=== PATIENT | female | born 1955 | race Caucasian/White ===

== ENCOUNTER → 2016-12-06 | Day surgery (SDC) | payer BC ==
[2016-11-03 07:33] VITALS: BMI 32.0
[~2016-12-06] VITALS: Ht 160 cm; Wt 84.1 kg
[~2016-12-06] MED LIST: CHOL1000 PO; CYM/30 PO; LIDOCAINE HCL 2% 2 ML VIAL (20MG/ML) ONE; LISI40TA PO; MELO15TA4 PO; MULTTAB58 PO; NXM/40 PO; ONDANSETRON INJ 2 MG/ML 2 ML VIAL ONE; PROPOFOL IV EMULSION 10 MG/ML 20 ML VIAL IV ONE; PSEU30TA20 PO; RANI300T2 PO; SODIUM CHLORIDE 0.9% 500ML 500 ML IV ONE; ZCR40 PO
[2016-12-06 14:52] VITALS: Ht 160 cm; Wt 84.1 kg
--- NOTE | 2016-12-06 15:23 | Endo History and Physical ---
History & Physical Date of Service: Dec 06, 2016. Chief Complaint: Hx reflux Referring Physician: Dr. Romulo Craft History of Present Illness 61 yo CF who presents for EGD secondary to GERD Past Surgical History Hx Cardiac Surgery: No Hx Internal Defibrillator: No Hx Pacemaker: No Hx Abdominal Surgery: Yes (RUMA BSO) Hx of Implantable Prosthesis: No Hx Post-Op Nausea and Vomiting: No Hx Cancer Surgery: No Hx Thoracic Surgery: No Hx Orthopedic: No Hx Urinary Tract Surgery: No Family History None Social History Smoking Status: Never Smoker Hx Substance Use: No Hx Alcohol Use: No Allergies Coded Allergies: Cephalosporins (Verified Allergy, Intermediate, BLISTERS, 10/29/16) Aspirin (Verified Allergy, Mild, RASH, 10/29/16) Cephalexin (Verified Allergy, Unknown, Blisters, 10/29/16) Reported by PT. Current Medications Reported Home Medications Medications Dose Route/Sig Max Daily Dose Days Date Category Sudafed (Pseudoephedrine HCl) 30 Mg Tab 30 Mg PO DAILY PRN 10/25/16 Reported Vitamin D3 (Cholecalciferol) 1,000 Unit Tab 1 Tab PO QAM 10/25/16 Reported Cymbalta (Duloxetine HCl) 30 Mg Cap 1 Cap PO HS 10/25/16 Reported Zantac (Ranitidine HCl) 300 Mg Tab 300 Mg PO HS 10/25/16 Reported Zestril (Lisinopril) 40 Mg Tab 40 Mg PO QAM 10/25/16 Reported Multivitamin (Multiple Vitamin) 1 Tab Tab 1 Tab PO QAM 10/25/16 Reported Nexium (Esomeprazole Magnesium) 40 Mg Cap 40 Mg PO QAM 11/29/14 Reported Mobic (Meloxicam) 15 Mg Tab 15 Mg PO QAM 11/29/14 Reported Simvastatin 40 Mg Tab 40 Mg PO QAM 11/29/14 Reported Vital Signs Weight (Kilograms): 84.09 Height (Feet): 5 Height (Inches): 3 Date Time Temp Pulse Resp B/P Pulse Ox O2 Delivery O2 Flow Rate FiO2 12/06/16 14:57 36.7 96 16 144/70 95 Room Air Physical Exam General Appearance: WD/WN, no apparent distress Respiratory/Chest: Auscultation: breath sounds normal Cardiovascular: Heart Auscultation: RRR Abdomen: Bowel Sounds: normal Inspection & Palpation: soft, non-distended, no tenderness, guarding & rebound Assessment and Plan Assessment: 61 yo CF who presents for EGD secondary to GERD Plan: Proceed with EGD
--- NOTE | 2016-12-06 16:18 | Discharge Instructions ---
Endoscopy Patient Instructions Date / Procedure(s) Performed Dec 06, 2016. EGD Allergy Information Coded Allergies: Cephalosporins (Verified Allergy, Intermediate, BLISTERS, 10/29/16) Aspirin (Verified Allergy, Mild, RASH, 10/29/16) Cephalexin (Verified Allergy, Unknown, Blisters, 10/29/16) Reported by PT. Discharge Date / Findings Dec 06, 2016. Gastritis s/p biopsies Hiatal hernia Gastric polyps s/p biopsies Medication Instructions OK to resume all medications today as prescribed Reported Home Medications Medications Dose Route/Sig Max Daily Dose Days Date Category Sudafed (Pseudoephedrine HCl) 30 Mg Tab 30 Mg PO DAILY PRN 10/25/16 Reported Vitamin D3 (Cholecalciferol) 1,000 Unit Tab 1 Tab PO QAM 10/25/16 Reported Cymbalta (Duloxetine HCl) 30 Mg Cap 1 Cap PO HS 10/25/16 Reported Zantac (Ranitidine HCl) 300 Mg Tab 300 Mg PO HS 10/25/16 Reported Zestril (Lisinopril) 40 Mg Tab 40 Mg PO QAM 10/25/16 Reported Multivitamin (Multiple Vitamin) 1 Tab Tab 1 Tab PO QAM 10/25/16 Reported Nexium (Esomeprazole Magnesium) 40 Mg Cap 40 Mg PO QAM 11/29/14 Reported Mobic (Meloxicam) 15 Mg Tab 15 Mg PO QAM 11/29/14 Reported Simvastatin 40 Mg Tab 40 Mg PO QAM 11/29/14 Reported Provider Instructions Activity Restrictions - No exercising or heavy lifting for 24 hours. - Do not drink alcohol the day of the procedure. - Do not drive a car or operate machinery until the day after the procedure. - Do not make any important decisions or sign important papers in 24 hours after the procedure. Following Day: - Return to full activity which may include returning to work/school. Diet Start your diet with liquids and light foods (jello, soup, juice, toast). Then eat your usual diet if not nauseated. Treatment For Common After Affects For mild abdominal pain, bloating, or excessive gas: - Rest - Eat lightly - Lie on right side Follow-Up Information Follow-up with Dr. Romulo Craft as scheduled Anesthesia Information What You Should Know You have had a procedure that required some medicine to reduce anxiety and discomfort. This treatment is called moderate sedation. After receiving the treatment, you may be sleepy, but you will be able to breathe on your own. The effects of the treatment may last for several hours. Follow these instructions along with Activity/Diet recommendations noted above: * Do NOT do anything where dizziness or clumsiness would be dangerous. * Rest quietly at home today, then you can be up and about tomorrow. * Have a responsible person stay with you the rest of today. * You may have had an I.V. today. If so, you may take the dressing off later today. Recommendations Call your doctor if: * Trouble breathing * Continuous vomiting for more than 24 hours * Temperature above 101 degrees * Severe abdominal pain or bloating * Pain not relieved by pain medicine ordered * There is increased drainage or redness from any incision * A large amount of rectal bleeding greater than 2-3 tablespoons. (If you had a polyp/s removed or have hemorrhoids, a small amount of blood - from the rectum is to be expected.) * You have any unanswered questions or concerns. IN THE EVENT OF A SERIOUS EMERGENCY, GO TO THE NEAREST EMERGENCY ROOM Your discharge instructions were prepared by provider Joey Frost. Patient Instructions Signature Page Ora Fernández Patient (or Guardian) Signature/Date: I have read and understand the instructions given to me by my caregivers. Caregiver/RN/Doctor Signature/Date: The above-named patient and/or guardian has received patient instructions on this date. + Original Patient Signature Page (only) stays with chart. Please make copy for patient.
--- NOTE | 2016-12-06 16:32 | GI REPORT ---
Procedure Date: 12/06/2016 3:19 PM Procedure: Upper GI endoscopy Indications: Follow-up of gastro-esophageal reflux disease Medicines: Monitored Anesthesia Care Complications: No immediate complications. Estimated Blood Loss: Estimated blood loss: none. Procedure: Pre-Anesthesia Assessment: - Prior to the procedure, a History and Physical was performed, and patient medications and allergies were reviewed. The patient's tolerance of previous anesthesia was also reviewed. The risks and benefits of the procedure and the sedation options and risks were discussed with the patient. All questions were answered, and informed consent was obtained. Prior Anticoagulants: The patient has taken no previous anticoagulant or antiplatelet agents. ASA Grade Assessment: II - A patient with mild systemic disease. After reviewing the risks and benefits, the patient was deemed in satisfactory condition to undergo the procedure. After obtaining informed consent, the endoscope was passed under direct vision. Throughout the procedure, the patient's blood pressure, pulse, and oxygen saturations were monitored continuously. The scope was introduced through the mouth, and advanced to the second part of duodenum. The upper GI endoscopy was accomplished without difficulty. The patient tolerated the procedure well. Findings: The examined esophagus was normal. A medium-sized hiatus hernia was present. Localized moderate inflammation characterized by erythema was found in the gastric antrum. Biopsies were taken with a cold forceps for histology. Multiple 3 to 8 mm sessile polyps with no stigmata of recent bleeding were found in the gastric fundus. Biopsies were taken with a cold forceps for histology. The examined duodenum was normal. Impression: - Normal esophagus. - Medium-sized hiatus hernia. - Gastritis. Biopsied. - Multiple gastric polyps. Biopsied. - Normal examined duodenum. Recommendation: - Resume previous diet. - Continue present medications. - Await pathology results. - Return to GI office as previously scheduled. Joey Frost DO 12/06/2016 4:31:27 PM This report has been signed electronically. Note Initiated On: 12/06/2016 3:19 PM
--- NOTE | 2016-12-06 16:45 | Anesthesiology Progress Note ---
Anesthesia Post Op Note Date & Time Dec 06, 2016 at 16:45 Vital Signs Pain Intensity: 0 Vital Signs Past 12 Hours Date Time Temp Pulse Resp B/P Pulse Ox O2 Delivery O2 Flow Rate FiO2 12/06/16 16:31 81 16 119/63 94 Room Air 12/06/16 16:17 83 16 109/55 94 Room Air 12/06/16 14:57 36.7 96 16 144/70 95 Room Air Notes Mental Status: alert / awake / arousable, participated in evaluation Pt Amnestic to Procedure: Yes Nausea / Vomiting: adequately controlled Pain: adequately controlled Airway Patency, RR, SpO2: stable & adequate BP & HR: stable & adequate Hydration State: stable & adequate Anesthetic Complications: no major complications apparent
[2016-12-06 16:49] VITALS: BP 123/71; PULSE 77; O2SAT 94
== END | disposition home or self-care (01) ==
LOC: C.GI 14:33
PROVIDERS: ATTEND Internal Medicine
DX: K31.89 Other diseases of stomach and duodenum (principal); K31.7 Polyp of stomach and duodenum; K44.9 Diaphragmatic hernia without obstruction or gangrene; K21.9 Gastro-esophageal reflux disease without esophagitis; Z90.710 Acquired absence of both cervix and uterus

== ENCOUNTER → 2017-02-14 | Outpatient (CLI) | payer BC ==
[~2017-02-14] MED LIST changes: -LIDOCAINE HCL 2% 2 ML VIAL (20MG/ML) ONE; -ONDANSETRON INJ 2 MG/ML 2 ML VIAL ONE; -PROPOFOL IV EMULSION 10 MG/ML 20 ML VIAL IV ONE; -SODIUM CHLORIDE 0.9% 500ML 500 ML IV ONE
[2017-02-14 10:55] LABS: BASO % 0.5 %; BASO ABS # 0.03 K/uL (0-0.2); COMPLETE YES; EOS % 2.3 %; IG% 0.2 %; LYMPH % 35.3 %; LYMPH ABS # 2.14 K/uL (1.2-3.4); MEAN CELL VOLUME 88.7 fL (80-100); MEAN CORPUSCULAR HEMOGLOBIN 29.2 pg (25-34); MEAN CORPUSCULAR HGB CONC 32.9 g/dl (32-36); MEAN PLATELET VOLUME 11.6 fL (7.4-10.4); MONO % 8.3 %; NEUT % 53.4 %; PLATELET COUNT 207 K/uL (130-400); RED BLOOD COUNT 4.62 M/uL (4.2-5.4); WHITE BLOOD COUNT 6.06 K/uL (4.8-10.8)
[2017-02-14 11:12] LABS: ESTIMATED AVERAGE GLUCOSE 131 mg/dl; HA1C FLAG Normal (Normal)
[2017-02-14 11:20] LABS: ALKALINE PHOSPHATASE 109 U/L (45-117); ALT/SGPT 31 U/L (12-78); AST/SGOT 27 U/L (15-37); BLOOD UREA NITROGEN 29 mg/dl (7-18); BUN/CREATININE RATIO 30.9 (10-20); CALCIUM 9.2 mg/dl (8.5-10.1); CARBON DIOXIDE 28 mmol/L (21-32); CHLORIDE 107 mmol/L (98-107); CHOLESTEROL 192 mg/dl (0-200); CREATININE 0.95 mg/dl (0.60-1.20); GLUCOSE 95 mg/dl (70-99); POTASSIUM 4.2 mmol/L (3.5-5.1); SODIUM 143 mmol/L (136-145); TRIGLYCERIDES 140 mg/dl (0-150); VERY LOW DENSITY LIPOPROT CALC 28 mg/dl
[2017-02-14 11:30] LABS: CHOLESTEROL/HDL RATIO 3.2; HDL CHOLESTEROL 60 mg/dl; LDL CHOLESTEROL CALCULATED 104 mg/dl
== END | disposition home or self-care (01) ==
LOC: C.LABBC 08:10
PROVIDERS: ATTEND Internal Medicine Geriatric Medicine
DX: E78.5 Hyperlipidemia, unspecified (principal); M19.90 Unspecified osteoarthritis, unspecified site; I10 Essential (primary) hypertension; R73.9 Hyperglycemia, unspecified; E55.9 Vitamin D deficiency, unspecified

== ENCOUNTER → 2017-02-25 | Outpatient (CLI) | payer BC ==
--- NOTE | 2017-02-25 16:21 | MAMMOGRAPHY REPORT ---
BILATERAL DIGITAL SCREENING MAMMOGRAM TOMOSYNTHESIS WITH CAD: 02/25/2017 CLINICAL HISTORY: Routine screening. Patient has no complaints. TECHNIQUE: Breast tomosynthesis in addition to standard 2D mammography was performed. Current study was also evaluated with a Computer Aided Detection (CAD) system. COMPARISON: Comparison is made to exams dated: 01/08/2016 mammogram, 01/07/2015 mammogram, 11/13/2013 mammogram, 10/30/2012 mammogram, 10/14/2011 mammogram, and 10/13/2010 mammogram - [facility]. BREAST COMPOSITION: The tissue of both breasts is heterogeneously dense, which may obscure small ma sses. FINDINGS: No suspicious masses, calcifications, or areas of architectural distortion are noted in e ither breast. There has been no significant interval change compared to prior exams. IMPRESSION: ACR BI-RADS CATEGORY 1: NEGATIVE There is no mammographic evidence of malignancy. A 1 year screening mammogram is recommended. The p atient will receive written notification of the results. Approximately 10% of breast cancers are not detected with mammography. A negative mammographic repor t should not delay biopsy if a clinically suggestive mass is present. Nicci Metzger M.D. ah/:02/25/2017 15:21:37 Collection Support Specialist: Mehreen RODRÍGUEZ(R)(M), [facility] letter sent: Normal 1/2 BI-RADS Code: ACR BI-RADS Category 1: Negative
== END | disposition home or self-care (01) ==
LOC: C.MAMM 09:03
PROVIDERS: ATTEND Internal Medicine Geriatric Medicine
DX: Z12.31 Encounter for screening mammogram for malignant neoplasm of breast (principal)

== ENCOUNTER → 2017-08-16 | Outpatient (CLI) | payer BC | END | disposition home or self-care (01) | LOC: C.LABSPEC 16:51 | PROVIDERS: ATTEND Physician Assistant | DX: J02.9 Acute pharyngitis, unspecified (principal) ==

== ENCOUNTER → 2017-10-10 | Day surgery (SDC) | payer BC ==
[2017-09-26 12:03] VITALS: Ht 160 cm; Wt 84.1 kg
[~2017-10-10] VITALS: Ht 160 cm; Wt 84.1 kg
[~2017-10-10] MED LIST changes: +LIDOCAINE HCL 2% 2 ML VIAL (20MG/ML) ONE; +MIDAZOLAM HCL 1 MG/ML 2ML VIAL ONE; +PROPOFOL IV EMULSION 10 MG/ML 20 ML VIAL IV ONE; -PSEU30TA20 PO; +SODIUM CHLORIDE 0.9% 500ML 500 ML IV ONE
--- NOTE | 2017-10-10 10:08 | Endo History and Physical ---
History & Physical Date of Service: Oct 10, 2017. Chief Complaint: screening Referring Physician: Dr. Ras Craft History of Present Illness 62 yo CF who presents for screening colonoscopy. Past Surgical History Hx Cardiac Surgery: No Hx Internal Defibrillator: No Hx Pacemaker: No Hx Abdominal Surgery: Yes (RUMA BSO) Hx of Implantable Prosthesis: No Hx Post-Op Nausea and Vomiting: No Hx Cancer Surgery: No Hx Thoracic Surgery: No Hx Orthopedic: No Hx Urinary Tract Surgery: No Family History None Social History Smoking Status: Never Smoker Hx Substance Use: No Hx Alcohol Use: No Allergies Coded Allergies: Cephalosporins (Verified Allergy, Intermediate, BLISTERS, 09/26/17) Aspirin (Verified Allergy, Mild, RASH, 09/26/17) Cephalexin (Verified Allergy, Unknown, Blisters, 09/26/17) Reported by PT. Current Medications Reported Home Medications Medications Dose Route/Sig Max Daily Dose Days Date Category Vitamin D3 (Cholecalciferol) 1,000 Unit Tab 1 Tab PO QAM 10/25/16 Reported Cymbalta (Duloxetine HCl) 30 Mg Cap 1 Cap PO HS 10/25/16 Reported Zantac (Ranitidine HCl) 300 Mg Tab 300 Mg PO HS 10/25/16 Reported Zestril (Lisinopril) 40 Mg Tab 40 Mg PO QAM 10/25/16 Reported Multivitamin (Multiple Vitamin) 1 Tab Tab 1 Tab PO QAM 10/25/16 Reported Nexium (Esomeprazole Magnesium) 40 Mg Cap 40 Mg PO QAM 11/29/14 Reported Mobic (Meloxicam) 15 Mg Tab 15 Mg PO QAM 11/29/14 Reported Simvastatin 40 Mg Tab 40 Mg PO QAM 11/29/14 Reported Vital Signs Weight (Kilograms): 84.09 Height (Feet): 5 Height (Inches): 3 Date Time Temp Pulse Resp B/P (MAP) Pulse Ox O2 Delivery O2 Flow Rate FiO2 10/10/17 09:53 36.9 79 18 146/91 (109) 97 Room Air Physical Exam General Appearance: WD/WN, no apparent distress Respiratory/Chest: Auscultation: breath sounds normal Cardiovascular: Heart Auscultation: RRR Abdomen: Bowel Sounds: normal Inspection & Palpation: soft, non-distended, no tenderness, guarding & rebound Assessment and Plan Assessment: 62 yo CF who presents for screening colonoscopy. Plan: Proceed with colonoscopy.
--- NOTE | 2017-10-10 10:47 | GI REPORT ---
Procedure Date: 10/10/2017 10:16 AM Procedure: Colonoscopy Indications: Screening for colorectal malignant neoplasm Medicines: Monitored Anesthesia Care Complications: No immediate complications. Estimated Blood Loss: Estimated blood loss: none. Procedure: Pre-Anesthesia Assessment: - Prior to the procedure, a History and Physical was performed, and patient medications and allergies were reviewed. The patient's tolerance of previous anesthesia was also reviewed. The risks and benefits of the procedure and the sedation options and risks were discussed with the patient. All questions were answered, and informed consent was obtained. Prior Anticoagulants: The patient has taken no previous anticoagulant or antiplatelet agents. ASA Grade Assessment: II - A patient with mild systemic disease. After reviewing the risks and benefits, the patient was deemed in satisfactory condition to undergo the procedure. After I obtained informed consent, the scope was passed under direct vision. Throughout the procedure, the patient's blood pressure, pulse, and oxygen saturations were monitored continuously. The scope was introduced through the anus and advanced to the terminal ileum. The colonoscopy was performed without difficulty. The patient tolerated the procedure well. The quality of the bowel preparation was good. The terminal ileum, ileocecal valve, appendiceal orifice, and rectum were photographed. Findings: The perianal and digital rectal examinations were normal. Multiple small-mouthed diverticula were found in the sigmoid colon. Non-bleeding internal hemorrhoids were found during retroflexion. The hemorrhoids were small. Impression: - Diverticulosis in the sigmoid colon. - Non-bleeding internal hemorrhoids. - No specimens collected. Recommendation: - Resume previous diet. - Continue present medications. - Repeat colonoscopy in 10 years for surveillance. - Return to primary care physician as previously scheduled. Joey Frost, 10/10/2017 10:47:13 AM This report has been signed electronically. Note Initiated On: 10/10/2017 10:16 AM I attest to the content of the Intraoperative Record and orders documented therein, exceptions below
--- NOTE | 2017-10-10 10:52 | Discharge Instructions ---
Endoscopy Patient Instructions Date / Procedure(s) Performed Oct 10, 2017. Colonoscopy Allergy Information Coded Allergies: Cephalosporins (Verified Allergy, Intermediate, BLISTERS, 09/26/17) Aspirin (Verified Allergy, Mild, RASH, 09/26/17) Cephalexin (Verified Allergy, Unknown, Blisters, 09/26/17) Reported by PT. Discharge Date / Findings Oct 10, 2017. Diverticulosis Internal hemorrhoids Medication Instructions OK to resume all medications today as prescribed Reported Home Medications Medications Dose Route/Sig Max Daily Dose Days Date Category Vitamin D3 (Cholecalciferol) 1,000 Unit Tab 1 Tab PO QAM 10/25/16 Reported Cymbalta (Duloxetine HCl) 30 Mg Cap 1 Cap PO HS 10/25/16 Reported Zantac (Ranitidine HCl) 300 Mg Tab 300 Mg PO HS 10/25/16 Reported Zestril (Lisinopril) 40 Mg Tab 40 Mg PO QAM 10/25/16 Reported Multivitamin (Multiple Vitamin) 1 Tab Tab 1 Tab PO QAM 10/25/16 Reported Nexium (Esomeprazole Magnesium) 40 Mg Cap 40 Mg PO QAM 11/29/14 Reported Mobic (Meloxicam) 15 Mg Tab 15 Mg PO QAM 11/29/14 Reported Simvastatin 40 Mg Tab 40 Mg PO QAM 11/29/14 Reported Provider Instructions Activity Restrictions - No exercising or heavy lifting for 24 hours. - Do not drink alcohol the day of the procedure. - Do not drive a car or operate machinery until the day after the procedure. - Do not make any important decisions or sign important papers in 24 hours after the procedure. Following Day: - Return to full activity which may include returning to work/school. Diet Start your diet with liquids and light foods (jello, soup, juice, toast). Then eat your usual diet if not nauseated. Treatment For Common After Affects For mild abdominal pain, bloating, or excessive gas: - Rest - Eat lightly - Lie on right side Follow-Up Information Follow-up with Dr. Ras Craft as scheduled Anesthesia Information What You Should Know You have had a procedure that required some medicine to reduce anxiety and discomfort. This treatment is called moderate sedation. After receiving the treatment, you may be sleepy, but you will be able to breathe on your own. The effects of the treatment may last for several hours. Follow these instructions along with Activity/Diet recommendations noted above: * Do NOT do anything where dizziness or clumsiness would be dangerous. * Rest quietly at home today, then you can be up and about tomorrow. * Have a responsible person stay with you the rest of today. * You may have had an I.V. today. If so, you may take the dressing off later today. Recommendations Call your doctor if: * Trouble breathing * Continuous vomiting for more than 24 hours * Temperature above 101 degrees * Severe abdominal pain or bloating * Pain not relieved by pain medicine ordered * There is increased drainage or redness from any incision * A large amount of rectal bleeding greater than 2-3 tablespoons. (If you had a polyp/s removed or have hemorrhoids, a small amount of blood - from the rectum is to be expected.) * You have any unanswered questions or concerns. IN THE EVENT OF A SERIOUS EMERGENCY, GO TO THE NEAREST EMERGENCY ROOM Your discharge instructions were prepared by provider Joey Frost. Patient Instructions Signature Page Ora Fernández Patient (or Guardian) Signature/Date: I have read and understand the instructions given to me by my caregivers. Caregiver/RN/Doctor Signature/Date: The above-named patient and/or guardian has received patient instructions on this date. + Original Patient Signature Page (only) stays with chart. Please make copy for patient.
[2017-10-10 11:12] VITALS: BP 121/84; PULSE 67; O2SAT 95
--- NOTE | 2017-10-10 11:51 | Anesthesiology Progress Note ---
Anesthesia Post Op Note Date & Time Oct 10, 2017 at 11:51 Vital Signs Pain Intensity: 0 Vital Signs Past 12 Hours Date Time Temp Pulse Resp B/P (MAP) Pulse Ox O2 Delivery O2 Flow Rate FiO2 10/10/17 11:12 67 16 121/84 (96) 95 Nasal Cannula 10/10/17 10:57 75 16 102/92 (95) 97 Nasal Cannula 10/10/17 10:42 73 16 90/64 (73) 97 Nasal Cannula 10/10/17 09:53 36.9 79 18 146/91 (109) 97 Room Air Notes Mental Status: alert / awake / arousable, participated in evaluation Pt Amnestic to Procedure: Yes Nausea / Vomiting: adequately controlled Pain: adequately controlled Airway Patency, RR, SpO2: stable & adequate BP & HR: stable & adequate Hydration State: stable & adequate Anesthetic Complications: no major complications apparent
== END | disposition home or self-care (01) ==
LOC: C.GI 09:34
PROVIDERS: ATTEND Internal Medicine
DX: Z12.11 Encounter for screening for malignant neoplasm of colon (principal); I10 Essential (primary) hypertension; K57.30 Diverticulosis of large intestine without perforation or abscess without bleeding; K64.8 Other hemorrhoids; F41.9 Anxiety disorder, unspecified; Z98.41 Cataract extraction status, right eye; Z98.42 Cataract extraction status, left eye

== ENCOUNTER → 2017-10-20 | Outpatient (CLI) | payer BC ==
[~2017-10-20] MED LIST changes: -LIDOCAINE HCL 2% 2 ML VIAL (20MG/ML) ONE; -MIDAZOLAM HCL 1 MG/ML 2ML VIAL ONE; -PROPOFOL IV EMULSION 10 MG/ML 20 ML VIAL IV ONE; -SODIUM CHLORIDE 0.9% 500ML 500 ML IV ONE
[2017-10-20 13:08] LABS: BASO % 0.3 %; BASO ABS # 0.02 K/uL (0-0.2); COMPLETE YES; EOS % 3.2 %; IG% 0.3 %; LYMPH % 27.6 %; LYMPH ABS # 1.88 K/uL (1.2-3.4); MEAN CELL VOLUME 89.9 fL (80-100); MEAN CORPUSCULAR HEMOGLOBIN 30.2 pg (25-34); MEAN CORPUSCULAR HGB CONC 33.6 g/dl (32-36); MEAN PLATELET VOLUME 11.9 fL (7.4-10.4); NEUT % 63.6 %; PLATELET COUNT 238 K/uL (130-400); RED BLOOD COUNT 4.67 M/uL (4.2-5.4)
[2017-10-20 13:30] LABS: AMYLASE 76 U/L (25-115); BLOOD UREA NITROGEN 19 mg/dl (7-18); BUN/CREATININE RATIO 18.2 (10-20); CALCIUM 9.5 mg/dl (8.5-10.1); CARBON DIOXIDE 29 mmol/L (21-32); CHLORIDE 107 mmol/L (98-107); CREATININE 1.06 mg/dl (0.60-1.20); GLUCOSE 122 mg/dl (70-99); MAGNESIUM 2.1 mg/dl (1.8-2.4); POTASSIUM 3.9 mmol/L (3.5-5.1); SODIUM 138 mmol/L (136-145)
[2017-10-20 13:34] LABS: ALB/GLOB RATIO 0.9 (0.9-2); ALKALINE PHOSPHATASE 119 U/L (45-117); ALT/SGPT 31 U/L (12-78); AST/SGOT 30 U/L (15-37)
== END | disposition home or self-care (01) ==
LOC: C.LABBC 09:56
PROVIDERS: ATTEND Physician Assistant
DX: R11.10 Vomiting, unspecified (principal)

== ENCOUNTER → 2017-10-24 | Day surgery (SDC) | payer BC ==
[~2017-10-24] VITALS: Ht 160 cm; Wt 82.7 kg
[~2017-10-24] MED LIST changes: +LIDOCAINE HCL 2% 2 ML VIAL (20MG/ML) ONE; +MIDAZOLAM HCL 1 MG/ML 2ML VIAL ONE; +PROPOFOL IV EMULSION 10 MG/ML 20 ML VIAL IV ONE; +SODIUM CHLORIDE 0.9% 500ML 500 ML IV ONE
[2017-10-24 10:47] VITALS: Ht 160 cm; Wt 82.7 kg
--- NOTE | 2017-10-24 12:01 | Endo History and Physical ---
History & Physical Date of Service: Oct 24, 2017. Chief Complaint: vomiting Referring Physician: Dr. Craft History of Present Illness 62 yo CF who presents for EGD secondary to vomiting. Past Surgical History Hx Cardiac Surgery: No Hx Internal Defibrillator: No Hx Pacemaker: No Hx Abdominal Surgery: Yes (hysterectomy 1977) Hx of Implantable Prosthesis: No Hx Post-Op Nausea and Vomiting: No Hx Cancer Surgery: No Hx Thoracic Surgery: No Hx Orthopedic: No Hx Urinary Tract Surgery: No Family History Esophogeal CA, Polyp Social History Smoking Status: Never Smoker Hx Substance Use: No Hx Alcohol Use: No Allergies Coded Allergies: Cephalosporins (Verified Allergy, Intermediate, BLISTERS, 10/24/17) Aspirin (Verified Allergy, Mild, RASH, 10/24/17) Cephalexin (Verified Allergy, Unknown, Blisters, 10/24/17) Reported by PT. Current Medications Reported Home Medications Medications Dose Route/Sig Max Daily Dose Days Date Category Vitamin D3 (Cholecalciferol) 1,000 Unit Tab 1 Tab PO QAM 10/25/16 Reported Cymbalta (Duloxetine HCl) 30 Mg Cap 1 Cap PO HS 10/25/16 Reported Zantac (Ranitidine HCl) 300 Mg Tab 300 Mg PO HS 10/25/16 Reported Zestril (Lisinopril) 40 Mg Tab 40 Mg PO QAM 10/25/16 Reported Multivitamin (Multiple Vitamin) 1 Tab Tab 1 Tab PO QAM 10/25/16 Reported Nexium (Esomeprazole Magnesium) 40 Mg Cap 40 Mg PO QAM 11/29/14 Reported Mobic (Meloxicam) 15 Mg Tab 15 Mg PO QAM 11/29/14 Reported Simvastatin 40 Mg Tab 40 Mg PO QAM 11/29/14 Reported Vital Signs Weight (Kilograms): 82.73 Height (Feet): 5 Height (Inches): 3 Date Time Temp Pulse Resp B/P (MAP) Pulse Ox O2 Delivery O2 Flow Rate FiO2 10/24/17 10:59 36.5 74 16 144/76 (98) 98 Room Air Physical Exam General Appearance: WD/WN, no apparent distress Respiratory/Chest: Auscultation: breath sounds normal Cardiovascular: Heart Auscultation: RRR Abdomen: Bowel Sounds: normal Inspection & Palpation: soft, non-distended, no tenderness, guarding & rebound Assessment and Plan Assessment: 62 yo CF who presents for EGD secondary to vomiting. Plan: Proceed with EGD
--- NOTE | 2017-10-24 12:41 | GI REPORT ---
Procedure Date: 10/24/2017 11:48 AM Procedure: Upper GI endoscopy Indications: Vomiting Medicines: Monitored Anesthesia Care Complications: No immediate complications. Estimated Blood Loss: Estimated blood loss: none. Procedure: Pre-Anesthesia Assessment: - Prior to the procedure, a History and Physical was performed, and patient medications and allergies were reviewed. The patient's tolerance of previous anesthesia was also reviewed. The risks and benefits of the procedure and the sedation options and risks were discussed with the patient. All questions were answered, and informed consent was obtained. Prior Anticoagulants: The patient has taken no previous anticoagulant or antiplatelet agents. ASA Grade Assessment: II - A patient with mild systemic disease. After reviewing the risks and benefits, the patient was deemed in satisfactory condition to undergo the procedure. After obtaining informed consent, the endoscope was passed under direct vision. Throughout the procedure, the patient's blood pressure, pulse, and oxygen saturations were monitored continuously. The scope was introduced through the mouth, and advanced to the second part of duodenum. The upper GI endoscopy was accomplished without difficulty. The patient tolerated the procedure well. Findings: The examined esophagus was normal. A TTS dilator was passed through the scope. Dilation with an 18-19-20 mm balloon (to a maximum balloon size of 20 mm) dilator was performed. The dilation site was examined and showed no change. A medium-sized hiatus hernia was present. The examined duodenum was normal. Impression: - Normal esophagus. Dilated. - Medium-sized hiatus hernia. - Normal examined duodenum. - No specimens collected. Recommendation: - Resume previous diet. - Continue present medications. - Refer to a surgeon at appointment to be scheduled. - Return to GI office as previously scheduled. Joey Frost, 10/24/2017 12:40:48 PM This report has been signed electronically. Note Initiated On: 10/24/2017 11:48 AM I attest to the content of the Intraoperative Record and orders documented therein, exceptions below
[2017-10-24 12:55] VITALS: BP 123/78; PULSE 68; O2SAT 95
--- NOTE | 2017-10-24 13:16 | Discharge Instructions ---
Endoscopy Patient Instructions Date / Procedure(s) Performed Oct 24, 2017. EGD Allergy Information Coded Allergies: Cephalosporins (Verified Allergy, Intermediate, BLISTERS, 10/24/17) Aspirin (Verified Allergy, Mild, RASH, 10/24/17) Cephalexin (Verified Allergy, Unknown, Blisters, 10/24/17) Reported by PT. Discharge Date / Findings Oct 24, 2017. Distal esophageal dilation to 20mm Hiatal hernia Medication Instructions OK to resume all medications today as prescribed Reported Home Medications Medications Dose Route/Sig Max Daily Dose Days Date Category Vitamin D3 (Cholecalciferol) 1,000 Unit Tab 1 Tab PO QAM 10/25/16 Reported Cymbalta (Duloxetine HCl) 30 Mg Cap 1 Cap PO HS 10/25/16 Reported Zantac (Ranitidine HCl) 300 Mg Tab 300 Mg PO HS 10/25/16 Reported Zestril (Lisinopril) 40 Mg Tab 40 Mg PO QAM 10/25/16 Reported Multivitamin (Multiple Vitamin) 1 Tab Tab 1 Tab PO QAM 10/25/16 Reported Nexium (Esomeprazole Magnesium) 40 Mg Cap 40 Mg PO QAM 11/29/14 Reported Mobic (Meloxicam) 15 Mg Tab 15 Mg PO QAM 11/29/14 Reported Simvastatin 40 Mg Tab 40 Mg PO QAM 11/29/14 Reported Provider Instructions Activity Restrictions - No exercising or heavy lifting for 24 hours. - Do not drink alcohol the day of the procedure. - Do not drive a car or operate machinery until the day after the procedure. - Do not make any important decisions or sign important papers in 24 hours after the procedure. Following Day: - Return to full activity which may include returning to work/school. Diet Start your diet with liquids and light foods (jello, soup, juice, toast). Then eat your usual diet if not nauseated. Treatment For Common After Affects For mild abdominal pain, bloating, or excessive gas: - Rest - Eat lightly - Lie on right side Follow-Up Information Follow-up with Dr. Crfat as scheduled Anesthesia Information What You Should Know You have had a procedure that required some medicine to reduce anxiety and discomfort. This treatment is called moderate sedation. After receiving the treatment, you may be sleepy, but you will be able to breathe on your own. The effects of the treatment may last for several hours. Follow these instructions along with Activity/Diet recommendations noted above: * Do NOT do anything where dizziness or clumsiness would be dangerous. * Rest quietly at home today, then you can be up and about tomorrow. * Have a responsible person stay with you the rest of today. * You may have had an I.V. today. If so, you may take the dressing off later today. Recommendations Call your doctor if: * Trouble breathing * Continuous vomiting for more than 24 hours * Temperature above 101 degrees * Severe abdominal pain or bloating * Pain not relieved by pain medicine ordered * There is increased drainage or redness from any incision * A large amount of rectal bleeding greater than 2-3 tablespoons. (If you had a polyp/s removed or have hemorrhoids, a small amount of blood - from the rectum is to be expected.) * You have any unanswered questions or concerns. IN THE EVENT OF A SERIOUS EMERGENCY, GO TO THE NEAREST EMERGENCY ROOM Your discharge instructions were prepared by provider Joey Frost. Patient Instructions Signature Page Ora Fernández Patient (or Guardian) Signature/Date: I have read and understand the instructions given to me by my caregivers. Caregiver/RN/Doctor Signature/Date: The above-named patient and/or guardian has received patient instructions on this date. + Original Patient Signature Page (only) stays with chart. Please make copy for patient.
--- NOTE | 2017-10-24 13:19 | Anesthesiology Progress Note ---
Anesthesia Post Op Note Date & Time Oct 24, 2017 at 13:19 Vital Signs Pain Intensity: 0 Vital Signs Past 12 Hours Date Time Temp Pulse Resp B/P (MAP) Pulse Ox O2 Delivery O2 Flow Rate FiO2 10/24/17 12:55 68 16 123/78 (93) 95 Room Air 10/24/17 12:40 69 16 124/49 (74) 94 Room Air 10/24/17 12:25 71 12 92/49 (63) 95 Oxymask 7 10/24/17 10:59 36.5 74 16 144/76 (98) 98 Room Air Notes Mental Status: alert / awake / arousable, participated in evaluation Pt Amnestic to Procedure: Yes Nausea / Vomiting: adequately controlled Pain: adequately controlled Airway Patency, RR, SpO2: stable & adequate BP & HR: stable & adequate Hydration State: stable & adequate Anesthetic Complications: no major complications apparent
== END | disposition home or self-care (01) ==
LOC: C.GI 10:34
PROVIDERS: ATTEND Internal Medicine
DX: R11.10 Vomiting, unspecified (principal); K44.9 Diaphragmatic hernia without obstruction or gangrene; Z90.710 Acquired absence of both cervix and uterus; Z80.0 Family history of malignant neoplasm of digestive organs

== ENCOUNTER → 2017-11-02 | Outpatient (CLI) | payer BC ==
[~2017-11-02] MED LIST changes: -LIDOCAINE HCL 2% 2 ML VIAL (20MG/ML) ONE; -MIDAZOLAM HCL 1 MG/ML 2ML VIAL ONE; -PROPOFOL IV EMULSION 10 MG/ML 20 ML VIAL IV ONE; -SODIUM CHLORIDE 0.9% 500ML 500 ML IV ONE
--- NOTE | 2017-11-02 08:37 | DIAGNOSTIC IMAGING REPORT ---
(BARIUM SWALLOW) ESOPHAGUS CLINICAL HISTORY: HIATAL HERNIA COMPARISON STUDY: None FLUOROSCOPY TIME: 1 minute. FINDINGS: 22 fluoroscopic images were obtained. These images demonstrate mild esophageal dysmotility. 13 mm barium tablet passed into the stomach. A small to moderate sized hiatal hernia is noted. No reflux was elicited on this exam. No esophageal mass or stricture was identified. IMPRESSION: 1. Small to moderate sized hiatal hernia. 2. Mild esophageal dysmotility. Electronically signed by: Isaac Tejada M.D. 11/02/2017 8:35 AM Dictated Date/Time: 11/02/2017 8:34 AM
== END | disposition home or self-care (01) ==
LOC: C.RAD 07:53
PROVIDERS: ATTEND Surgery
DX: K44.9 Diaphragmatic hernia without obstruction or gangrene (principal)

== ENCOUNTER 2017-11-09 09:57 | Observation (INO) | payer BC ==
[2017-11-03 10:19] VITALS: Ht 160 cm; Wt 82.0 kg
[2017-11-09] VITALS (8 sets, daily range): BP systolic 119–148; BP diastolic 67–93; PULSE 77–100; TEMP 36.3–37.1; O2SAT 93–97
[~2017-11-09] VITALS: Ht 160 cm; Wt 82.0 kg
[~2017-11-09 09:57] MED LIST changes: +ATROPINE SULFATE 0.1 MG/ML 5ML SYR IV PRN; +EpHEDrine SULFATE INJ 50 MG/ML AMP IV PRN; +FENTANYL CITRATE INJ 50 MCG/1 ML 2 ML VIAL IV PRN; +HYDROmorphone INJ 1 MG/ML SYR IV PRN; +LACTATED RINGER'S 1000ML 1,000 ML IV SCH; +MELO-84 PO; -MELO15TA4 PO; +ONDANSETRON INJ 2 MG/ML 2 ML VIAL IV PRN; +PHENYLEPHRINE 100MCG/ML 5ML SYR IV PRN; +PROMETHAZINE HCL INJ 12.5 MG in SODIUM CHLORIDE 0.9% 50ML 50 ML IV PRN
[2017-11-09] MEDS ORDERED: NEOSTIGMINE METHYLSULFATE 5 MG/5 ML SYR ONE (10:20)
[2017-11-09] MEDS ORDERED: GLYCOPYRROLATE INJ 0.2 MG/ML VIAL ONE ×2 (10:20→15:41)
[2017-11-09] MEDS ORDERED: DEXAMETHASONE SOD INJ 4 MG/ML VIAL ONE (10:20)
[2017-11-09] MEDS ORDERED: KETOROLAC TROMETHAMINE 30 MG/ML VIAL ONE (10:20)
[2017-11-09] MEDS ORDERED: PROPOFOL IV EMULSION 10 MG/ML 20 ML VIAL IV ONE (10:20)
[2017-11-09] MEDS ORDERED: ONDANSETRON INJ 2 MG/ML 2 ML VIAL ONE ×2 (10:20→15:27)
[2017-11-09] MEDS ORDERED: LIDOCAINE HCL 2% 2 ML VIAL (20MG/ML) ONE (10:20)
[2017-11-09] MEDS ORDERED: MIDAZOLAM HCL 1 MG/ML 2ML VIAL ONE (10:21)
[2017-11-09] MEDS ORDERED: FENTANYL CITRATE INJ 50 MCG/1 ML 2 ML VIAL ONE ×3 (10:21→16:22)
--- NOTE | 2017-11-09 10:47 | History & Physical Bridge Note ---
H&P Re-Evaluation Bridge Note: I have examined the patient, reviewed the History & Physical and in the interval since the performance of the History & Physical I have noted the following changes of clinical significance: No changes noted
[2017-11-09] MEDS ORDERED: ALBUMIN HUMAN 5% 12.5 GM/250 ML VIAL IV ONE (11:40)
[2017-11-09] MEDS ORDERED: CLINDAMYCIN PHOS 150 MG/ML 2 ML VIAL ONE (12:01)
--- NOTE | 2017-11-09 13:32 | Progress Note ---
Progress Note Date of Service Nov 09, 2017. Pt seen in pre-op. Pt scheduled for Da Rajinder Lap Luz for her hiatal hernia. Pt consented for GETA and arterial line. Arterial line done under sterile aseptic technique using US guidance throughout. 2ml of 2% lidocaine injected to right wrist. Right radial artery visualized. 20g arrow catheter used x 2 attempts with successful cannulation. Atraumatic.
[2017-11-09] MEDS ORDERED: PHENYLEPHRINE 100MCG/ML 5ML SYR ONE (13:43)
[2017-11-09] MEDS ORDERED: EpHEDrine SULFATE 50MG/5ML SYR ONE (13:43)
[2017-11-09] MEDS ORDERED: SUCCINYLCHOLINE 100MG/5ML SYR IV ONE (13:43)
[2017-11-09] MEDS ORDERED: PHENYLEPHRINE HCL INJ 10 MG/ML VIAL ONE ×3 (13:43→15:41)
[2017-11-09] MEDS ORDERED: HydrALAZINE HCL 20 MG/ML VIAL IV. PRN (16:00)
[2017-11-09] MEDS ORDERED: ONDANSETRON INJ 2 MG/ML 2 ML VIAL IV PRN (16:00)
[2017-11-09] MEDS ORDERED: CLINDAMYCIN IV 900 MG in DEXTROSE 5% 100ML 100 ML IV SCH (16:00)
--- NOTE | 2017-11-09 16:27 | Anesthesiology Progress Note ---
Anesthesia Post Op Note Date & Time Nov 09, 2017 at 16:27 Vital Signs Pain Intensity: 0 Vital Signs Past 12 Hours Date Time Temp Pulse Resp B/P (MAP) Pulse Ox O2 Delivery O2 Flow Rate FiO2 11/09/17 16:20 87 22 123/83 97 Oxymask 10 11/09/17 16:10 81 14 154/82 95 Oxymask 10 11/09/17 16:02 36.0 84 16 163/87 95 Oxymask 10 11/09/17 10:32 36.7 77 20 148/93 97 Room Air Notes Mental Status: alert / awake / arousable, participated in evaluation Pt Amnestic to Procedure: Yes Nausea / Vomiting: adequately controlled Pain: adequately controlled Airway Patency, RR, SpO2: stable & adequate BP & HR: stable & adequate Hydration State: stable & adequate Anesthetic Complications: no major complications apparent
[2017-11-09] MEDS ORDERED: IV FLUIDS COMPLETED PRN (16:45)
--- NOTE | 2017-11-09 17:00 | NUR ---
A note: pt arrived to room 388 via bed with 3L O2. VSS. post op assessment, industrial fabric cutter, and fall agreement completed by this RN. pt oriented to room and equipment use. Report given to Radha primary RN. notified of pt rating pain 5/10 and requesting pain medication. call caba in reach.
[2017-11-09] MEDS: CLINDAMYCIN IV 900 MG in DEXTROSE 5% 50ML 44 ML IV SCH ×2 (18:24→23:08)
[2017-11-09] MEDS: ACETAMINOPHEN IV 1,000 MG in EMPTY BAG 0 ML IV SCH (18:25)
--- NOTE | 2017-11-09 20:00 | NUR ---
OBS: Pt. AOx4, clear lungs RA, VS stable, IVF infusing per Cheryl SOLIS AC saline locked, OOB 1 assist, ambulate in hallway, PRN pain medications. x6 dermabond sites to abdomen all clean, dry, and intact. D/C plans unsure at this time. Call caba within reach, will continue to monitor.
--- NOTE | 2017-11-09 20:01 | OPERATIVE REPORT ---
DATE OF OPERATION: 11/09/2017 PREOPERATIVE DIAGNOSES: 1. Symptomatic reflux and medical therapy failure. 2. Hiatal hernia. POSTOPERATIVE DIAGNOSES: Same. PROCEDURE: 1. Robot-assisted laparoscopic Luz fundoplication. 2. Esophagogastroscopy. SURGEON: Dr. Aguayo. RUBBER TUBING BACKER: Joshua Abraham (Mr. Abraham was there for the entire case and was instrumental and was not only a urgent care physician assistant, but also managing instruments at the bedside while I was at the console). ANESTHESIA: General anesthesia with endotracheal intubation. SPECIFICS OF PROCEDURE: Mr. Fernández arrived at [facility] on 11/09/2017. After I discussed this with the patient's family and the patient, we elected to proceed with this robotic Luz fundoplication. DESCRIPTION OF THE PROCEDURE: The patient was brought to the operating room and laid in supine position. General anesthesia induced and endotracheal intubation was performed. Appropriate timeout was called. THE PATIENT WAS ALLERGIC TO CEPHALOSPORINS and we gave her clindamycin. Prepped and draped in usual sterile fashion. She had a total of 6 ports placed. There was a 12 mm port for the camera above the umbilicus. Two 8 mm ports were placed in midclavicular line right at the costal margin after CO2 had been insufflated and two 5 mm ports were placed laterally on either side, 1 full robotic rasp on the left and on the right a liver retractor. The insistence port was a 12 mm port placed just to the left of the umbilicus. After insufflating CO2 to a Veress needle, we then placed a 5 mm scope and we were able to see there was very little in the way of adhesions. We insufflated CO2 and placed all of our ports as mentioned above, under laparoscopic direction. We then docked the robot and placed a pressor retractor into the right lateral 5 mm port. This was used to retract the liver away from the esophageal hiatus. The patient was then placed in reverse Trendelenburg with her head up and the time at the console started. Upon entering, I took down the greater curvature as it was easy to do in front of me. I took this all the way down via the short gastric using the Harmonic scalpel all the way down to the GE junction and the esophageal hiatus on the left. I continued to free this up posteriorly. I then took down the pars flaccida on the left all the way down to the right diaphragmatic crura. After this point, this was not hard to do it all. I was able to free up the esophagus nicely and put a 1-inch [place] around this. I then went down and freed up and took out a small sac. I freed up the esophagus nicely into the mediastinum, but I really did not do too much as we had plenty of the esophagus within the abdomen. We had at least 6 cm. I did free up posteriorly; however, the lesser curvature fat was quite thick. With care taken to avoid injury to the left gastric, I kept freeing this up because if I tried to pull the posterior fundus around it simply would not go well. I finally removed a large GE junction fat pad and took down more of the fat and delivered it off the field and then was able to get the fundus around without difficulty. I then did a fundoplication and was unhappy with it and cut it as it appeared to be under some tension. I then freed up more along the lesser curvature and then I was able to do a nice tension free Luz fundoplication by placing 2-0 silk into the anterior fundus and the esophagus and the posterior fundus and got a nice wrap under no tension. I put 2 more sutures, 1 between the anterior and posterior fundus 1 cm above the original suture and then I put 1 more suture about a cm above and I included the fundus, esophagus and the anterior crura of the diaphragm. After doing this, it appeared to be under no tension. I then undocked the patient and placed to combative reverse Trendelenburg and did an upper endoscopy by using a flexible gastroscope and went down it could be seen that there was no evidence of any injuries. The wrap did not appear too tight. I then insufflated air into the stomach while using saline to the sr. operations manager and there was no evidence of any leak anywhere. I then sucked out the stomach slowly and removed the gastroscope. The two 12 mm ports were closed with #1 PDS and then 4-0 Monocryl was used to close the incisions. She tolerated it well with negligible blood and extubated in the room. I attest to the content of the Intraoperative Record and any orders documented therein. Any exception s are noted below.
[2017-11-09] MEDS: METOCLOPRAMIDE HCL INJ 5 MG/ML 2 ML VIAL IV. SCH (21:52)
[2017-11-09] MEDS: MoRPHine SULFATE 2 MG/ML CARP IV PRN (21:54)
[2017-11-09] MEDS: D5W AND 1/2NSS 1,000 ML IV SCH (22:44)
[2017-11-09] MEDS ORDERED: NURSING DECISION MEDICATION ORDER SCH (22:45)
[2017-11-09] MEDS ORDERED: COUGH DROP (SUGAR FREE) LOZ 24 LOZ/1 BOX PO PRN (22:45)
--- NOTE | 2017-11-10 | NUR ---
OBS Note: A/Ox4. Pain controlled with medication. IVF running per MD order. OOB with minimal assistance. Pt currently resting in bed. Call caba within reach.
[2017-11-10 01:02] VITALS: BP 113/74; PULSE 96; TEMP 37.1; O2SAT 93
[2017-11-10] MEDS: ACETAMINOPHEN IV 1,000 MG in EMPTY BAG 0 ML IV SCH ×2 (01:20→10:06)
[2017-11-10] MEDS: D5W AND 1/2NSS 1,000 ML IV SCH ×2 (01:46→10:07)
[2017-11-10 02:59] VITALS: BP 144/77; PULSE 90; TEMP 37; O2SAT 91
--- NOTE | 2017-11-10 04:00 | NUR ---
OBS Note: No change in assessment. IVF running per MD order. Pt resting in bed. Call caba within reach.
[2017-11-10 05:09] LABS: HEMATOCRIT 35.8 % (37-47); HEMOGLOBIN 12.1 g/dL (12.0-16.0); MEAN CELL VOLUME 87.3 fL (80-100); MEAN CORPUSCULAR HEMOGLOBIN 29.5 pg (25-34); MEAN CORPUSCULAR HGB CONC 33.8 g/dl (32-36); MEAN PLATELET VOLUME 10.7 fL (7.4-10.4); PLATELET COUNT 189 K/uL (130-400); RED CELL DISTRIBUTION WIDTH CV 13.2 % (11.5-14.5); RED CELL DISTRIBUTION WIDTH SD 42.1 fL (36.4-46.3); WHITE BLOOD COUNT 13.32 K/uL (4.8-10.8)
[2017-11-10] MEDS: METOCLOPRAMIDE HCL INJ 5 MG/ML 2 ML VIAL IV. SCH (05:12)
[2017-11-10 05:40] LABS: CREATININE 0.98 mg/dl (0.60-1.20)
[2017-11-10 07:30] VITALS: BP 146/80; PULSE 88; TEMP 36.8; O2SAT 90
[2017-11-10] MEDS ORDERED: DOCU-94 PO (07:59)
[2017-11-10] MEDS ORDERED: ULT/50 PO (07:59)
--- NOTE | 2017-11-10 08:00 | NUR ---
OBS/ID Note: Alert and oriented x4. IV fluids infusing per md order. OOB independently in room. Reports tolerating a clear liquid diet. Voiding in toilet. Currently rates pain a 5/10, reports being comfortable with pain rating at this time. Dermabond x6 lap sites to abdomen remain clean and dry. Barium swallow test and xray to be completed later this am. Possible discharge home later today. Will continue to monitor.
--- NOTE | 2017-11-10 08:07 | Discharge Instructions ---
Discharge Instructions Date of Service Nov 10, 2017. Admission Reason for Admission: Hiatal Hernia Discharge Discharge Diagnosis / Problem: Hiatal Hernia Discharge Goals Goal(s): Decrease discomfort Activity Recommendations Activity Limitations: as noted below Lifting Limitations: no more than 10 pounds (until cleared todo so by Dr. Aguayo .) 1. Do not drive until cleared to do so by Dr. Aguayo. 2. You may shower and clean incisions with soap and water. No tub baths. 3. Continue a liquid diet. Yo may not eat any food that requires chewing ( such as bread or meat) until cleared to do so by Dr. Aguayo. . Current Hospital Diet Patient's current hospital diet: Clear Liquid Diet Discharge Diet Recommended Diet: Full Liquid Diet Procedures Procedures Performed: Robot Assisted Laparoscopic Luz Fundoplication, with Esophagogastroduodenoscopy Pending Studies Studies pending at discharge: no Medical Emergencies . Who to Call and When: Medical Emergencies: If at any time you feel your situation is an emergency, please call 911 immediately. . Non-Emergent Contact Non-Emergency issues call your: Surgeon Call Non-Emergent contact if: you have a fever, your pain is not controlled, wound has increased drainage . "Provider Documentation" section prepared by Joshua Abraham. . VTE Core Measure Inpt VTE Proph given/why not?: Enoxaparin (Lovenox)SQ
--- NOTE | 2017-11-10 08:37 | Anesthesiology Progress Note ---
Anesthesia Post Op Note Date & Time Nov 10, 2017 at 08:36 Vital Signs Pain Intensity: 5.0 Vital Signs Past 12 Hours Date Time Temp Pulse Resp B/P (MAP) Pulse Ox O2 Delivery O2 Flow Rate FiO2 11/10/17 02:59 37.0 90 18 144/77 (99) 91 Room Air 11/10/17 01:02 37.1 96 18 113/74 (87) 93 Room Air 11/09/17 23:21 Room Air 11/09/17 23:03 37.1 94 16 119/67 (84) 93 Room Air 11/09/17 21:00 36.5 100 18 129/76 (93) 94 Nasal Cannula 1.0 Notes Mental Status: alert / awake / arousable, participated in evaluation Pt Amnestic to Procedure: Yes Nausea / Vomiting: adequately controlled Pain: adequately controlled Airway Patency, RR, SpO2: stable & adequate BP & HR: stable & adequate Hydration State: stable & adequate Anesthetic Complications: no major complications apparent
[2017-11-10] MEDS ORDERED: ENOXAPARIN 40 MG/0.4 ML SYR SQ SCH (09:00)
--- NOTE | 2017-11-10 09:51 | DIAGNOSTIC IMAGING REPORT ---
CHEST 2 VIEWS ROUTINE HISTORY: hypoxia COMPARISON: Chest 11/08/2016. FINDINGS: Anterior pneumomediastinum best seen on the lateral view. No definite pneumothorax. Low lung lines with bibasilar linear densities. Small amount of subdiaphragmatic gas is suspected. There is also right supraclavicular subcutaneous emphysema. Mild diffuse interstitial thickening which appears to be chronic. There is also trace subcutaneous emphysema within the left lower chest wall. There may be trace bilateral pleural effusions. The heart is normal in size. IMPRESSION: 1. Pneumomediastinum with a small amount of subdiaphragmatic gas. This is likely postoperative. 2. There is also subcutaneous emphysema within the right supraclavicular and left chest wall locations. This is also likely due to the recent postoperative change. No definite pneumothorax identified. 3. Trace bilateral pleural effusions. 4. Bibasilar densities. This is nonspecific but favor subsegmental atelectasis. A pneumonia could also have a similar appearance. Electronically signed by: Brian Bosch M.D. 11/10/2017 9:49 AM Dictated Date/Time: 11/10/2017 9:45 AM
--- NOTE | 2017-11-10 10:36 | DIAGNOSTIC IMAGING REPORT ---
SINGLE CONTRAST SWALLOW UTILIZING OPTIRAY CLINICAL HISTORY: Status post fundoplication. Evaluate for leak. COMPARISON STUDY: Barium swallow November 02, 2017. FLUOROSCOPY TIME: 1.5 minutes. FINDINGS: 9 fluoroscopic images were obtained. Mild esophageal dysmotility is noted. Extrinsic compression at the proximal stomach is expected following Luz fundoplication. There is moderate smooth narrowing. Contrast passed freely into the stomach. However, there was a standing column of contrast within the esophagus at the completion of the exam. No contrast extravasation is identified. No additional abnormalities were noted. There is mild esophageal dilatation. IMPRESSION: 1. No contrast extravasation to suggest leak status post fundoplication. 2. Moderate smooth narrowing of the proximal stomach which is expected following Luz fundoplication. In addition, postoperative edema may be present. Contrast passed freely into the stomach however standing column of contrast within the esophagus at completion of the study. Mild esophageal dilatation. This finding may place the patient at risk for aspiration however Optiray was utilized for the study. Electronically signed by: Isaac Tejada M.D. 11/10/2017 10:35 AM Dictated Date/Time: 11/10/2017 10:28 AM
[2017-11-10 11:15] VITALS: BP 146/84; PULSE 79; TEMP 37.4; O2SAT 92
[2017-11-10 11:56] VITALS: TEMP 36.9
--- NOTE | 2017-11-10 12:00 | NUR ---
OBS Note: Assessment remains unchanged. IV fluids infusing per md order. Pain being controlled by routine Tylenol. PA-C reviewed testing and patient to be discharged when family arrives to transport. Will continue to monitor.
[2017-11-10 12:18] VITALS: BP 146/84; PULSE 79; TEMP 36.9; O2SAT 92
--- NOTE | 2017-11-10 13:41 | DISCHARGE SUMMARY ---
DATE OF DISCHARGE: 11/10/2017 DISCHARGE DIAGNOSES: Symptomatic gastroesophageal reflux disease, hiatal hernia. HOSPITAL COURSE: This is a very nice 62-year-old female who presented to me with unrelenting symptoms of gastroesophageal reflux disease. This occurred at night when lying down. She was fairly miserable and had failed medical management. She has a small hiatal hernia with reflux. On 11/09/2017 the patient underwent uncomplicated robotic assisted laparoscopic Luz fundoplication. I was quite happy with the upper endoscopy at the conclusion of the case and her barium swallow the following morning looked quite good. The barium flowed through the repair quite nicely. It was slow getting through, but there was some barium in the esophagus itself, but it went through the repair nicely. Overall, I was quite happy with her. She is tolerating liquids. We had a long talk about a diet. I will see her back in the office next week. She was ambulating and tolerating liquids the morning after surgery.
[2017-12-08] MEDS ORDERED: DOCU-94 PO (09:52)
== END 2017-11-10 13:50 | disposition home or self-care (01) ==
LOC: C.ACU 09:57 → C.MSN 10:00 → ENRESERV 16:32
PROVIDERS: ADMIT Surgery; ATTEND Surgery
DX: K21.9 Gastro-esophageal reflux disease without esophagitis (principal); K44.9 Diaphragmatic hernia without obstruction or gangrene; I10 Essential (primary) hypertension; E78.5 Hyperlipidemia, unspecified; E55.9 Vitamin D deficiency, unspecified; F41.8 Other specified anxiety disorders; M19.90 Unspecified osteoarthritis, unspecified site; M54.16 Radiculopathy, lumbar region; N39.41 Urge incontinence; E66.9 Obesity, unspecified; Z68.31 Body mass index [BMI] 31.0-31.9, adult; Z79.899 Other long term (current) drug therapy
CPT/HCPCS: 43280; S2900

== ENCOUNTER 2017-11-21 16:46 | Emergency (ER) | payer BC, OTHER ==
[~2017-11-21] VITALS: Ht 160 cm; Wt 78.0 kg
[~2017-11-21 16:46] MED LIST changes: -ATROPINE SULFATE 0.1 MG/ML 5ML SYR IV PRN; +DOCU-94 PO; -EpHEDrine SULFATE INJ 50 MG/ML AMP IV PRN; -FENTANYL CITRATE INJ 50 MCG/1 ML 2 ML VIAL IV PRN; -HYDROmorphone INJ 1 MG/ML SYR IV PRN; -LACTATED RINGER'S 1000ML 1,000 ML IV SCH; -MELO-84 PO; +MELO15TA4 PO; -ONDANSETRON INJ 2 MG/ML 2 ML VIAL IV PRN; -PHENYLEPHRINE 100MCG/ML 5ML SYR IV PRN; -PROMETHAZINE HCL INJ 12.5 MG in SODIUM CHLORIDE 0.9% 50ML 50 ML IV PRN; +ULT/50 PO
[2017-11-21 16:49] VITALS: TEMP 36.8; Ht 160 cm; Wt 78.0 kg
[2017-11-21] MEDS ORDERED: ONDANSETRON INJ 2 MG/ML 2 ML VIAL IV STA (17:01)
[2017-11-21 17:18] LABS: BASO % 0.2 %; BASO ABS # 0.02 K/uL (0-0.2); EOS % 1.5 %; EOS ABS # 0.18 K/uL (0-0.5); HEMOGLOBIN 13.9 g/dL (12.0-16.0); IG# 0.03 K/uL (0.00-0.02); MEAN CELL VOLUME 86.5 fL (80-100); MEAN CORPUSCULAR HEMOGLOBIN 29.3 pg (25-34); MEAN CORPUSCULAR HGB CONC 33.9 g/dl (32-36); MEAN PLATELET VOLUME 10.3 fL (7.4-10.4); MONO % 5.4 %; MONO ABS # 0.64 K/uL (0.11-0.59); NEUT % 76.6 %; PLATELET COUNT 358 K/uL (130-400); RED CELL DISTRIBUTION WIDTH CV 12.9 % (11.5-14.5); RED CELL DISTRIBUTION WIDTH SD 41.1 fL (36.4-46.3); WHITE BLOOD COUNT 11.87 K/uL (4.8-10.8)
[2017-11-21] MEDS ORDERED: DOCU100C31 PO (17:44)
[2017-11-21 17:55] LABS: ALBUMIN 3.7 gm/dl (3.4-5.0); CALCIUM 9.5 mg/dl (8.5-10.1); CREATININE 1.11 mg/dl (0.60-1.20); POTASSIUM 4.1 mmol/L (3.5-5.1)
[2017-11-21 17:58] LABS: TOTAL PROTEIN 8.1 gm/dl (6.4-8.2)
--- NOTE | 2017-11-21 18:05 | DIAGNOSTIC IMAGING REPORT ---
PA CHEST RADIOGRAPH AND UPRIGHT AND SUPINE AP RADIOGRAPHS OF THE ABDOMEN CLINICAL HISTORY: Vomiting. Evaluate for obstruction. Recent hernia surgery. COMPARISON STUDY: CT of the abdomen and pelvis May 20, 2010 and chest radiograph November 10, 2017. FINDINGS: Pneumomediastinum and soft tissue gas within the neck is no longer visualized when compared to exam of November 10, 2017. Lung volumes are mildly diminished but improved since prior exam. There is no consolidation to suggest pneumonia. Cardiac size is normal. There is no evidence for pulmonary edema. There is no free air. There is a paucity of bowel gas. There is no convincing evidence for a bowel obstruction. IMPRESSION: 1. No free air or radiographic evidence for a bowel obstruction. 2. Mildly diminished lung volumes which appear improved when compared to exam of November 10, 2017. Electronically signed by: Isaac Tejada M.D. 11/21/2017 6:03 PM Dictated Date/Time: 11/21/2017 6:00 PM
[2017-11-21] MEDS ORDERED: ONDA4TAB10 SL (18:14)
[2017-11-21] MEDS ORDERED: ONDANSETRON HOME PACK 4MG OD TAB PO ONE (18:15)
[2017-11-21 18:55] VITALS: BP 108/64; PULSE 80; O2SAT 95
--- NOTE | 2017-11-21 20:45 | EMERGENCY ROOM VISIT NOTE ---
History Report prepared by Jennifer: Irvin Carbone Under the Supervision of: Dr. Sivakumar Flores M.D. First contact with patient: 16:52 Chief Complaint: BLEEDING Stated Complaint: BLEEDING Nursing Triage Summary: patient had hiatal hernia surgery 1 week ago. patient started vomiting blood today "brown bitter tasting bomit with strings in it." patient c/o left sided abdominal pain History of Present Illness The patient is a 62 year old female who presents to the Emergency Room with complaints of intermittent vomiting beginning today. The patient states that her vomit has been brown with bits of stringy material. She notes that she is unsure if it is blood, but reports that it tastes bitter. In addition to her vomiting, the patient states that she is also experiencing pain on her left side and acid reflux that she believes is related to her vomiting. The patient states that her stool has been becoming more normal since her surgery, and denies any bloody or black stool. She also denies any urinary symptoms, SOB, and fever. She denies chest pain other than the reflux which she describes as burning. She notes that she is not on any blood thinners. She reports that she did not eat much today, but states that she drank coffee prior to vomiting. Source of History: patient, other (Dr. Aguayo) Onset: today Position: abdomen, other (mouth) Quality: other (vomiting, brown with stringy material) Timing: intermittent Associated Symptoms: + abdominal pain (left-sided), No fevers, No chest pain , No SOB, No urinary symptoms Note: The patient also complains of acid reflux. She denies any bloody and black stool. Review of Systems See HPI for pertinent positives & negatives. A total of 10 systems reviewed and were otherwise negative. Past Medical & Surgical Medical Problems: (1) Esophageal Reflux (2) GERD (gastroesophageal reflux disease) (3) Hypertension Nos (4) Mixed Hyperlipidemia (5) Osteoarthros Nos-Unspec (6) Other Chronic Pain Family History No pertinent family history stated. Social History Smoking Status: Never Smoker Housing Status: lives with family Occupation Status: employed Current/Historical Medications Scheduled Cholecalciferol (Vitamin D3), 1,000 UNITS PO QAM Docusate Sodium (Docusate Sodium), 100 MG PO DAILY Duloxetine HCl (Cymbalta), 30 MG PO HS Lisinopril (Zestril), 40 MG PO QAM Multiple Vitamin (Multivitamin), 1 TAB PO QAM Ondasetron Odt (Zofran Odt), 4 MG SL Q6H Ranitidine (Zantac), 300 MG PO HS Simvastatin (Simvastatin), 40 MG PO QAM Allergies Coded Allergies: Aspirin (Verified Allergy, Intermediate, RASH, 11/21/17) Cephalexin (Verified Allergy, Intermediate, Blisters, 11/21/17) Reported by PT. Cephalosporins (Verified Allergy, Intermediate, BLISTERS, 11/21/17) Physical Exam Vital Signs Date Time Temp Pulse Resp B/P (MAP) Pulse Ox O2 Delivery O2 Flow Rate FiO2 11/21/17 18:55 80 18 108/64 95 Room Air 11/21/17 17:26 77 11/21/17 16:49 36.8 99 20 133/65 99 Room Air Physical Exam Constitutional: Vital signs reviewed. Eyes: Pupils are equal round reactive to light. Conjunctiva are noninjected. ENT: Pharynx is clear without erythema or exudate. Mucous membranes are moist. Neck supple without meningeal signs. Respiratory: Clear to auscultation bilaterally. Breath sounds are equal bilaterally. Cardiovascular: Regular rate and rhythm. No rubs or gallops. GI: Soft, nondistended and nontender. Bowel sounds are present. Healing incisions to abdomen without signs of infection or dehiscence. Rectal: Dark brown stool, guaiac negative. Musculoskeletal: No peripheral edema. No lower extremity tenderness. Integumentary: No cyanosis. Neurological: The patient is awake and alert. No focal deficits. Psychiatric: Normal affect. Medical Decision & Procedures ER Provider Diagnostic Interpretation: Radiology results as stated below per my review and the radiologist's interpretation: PA CHEST RADIOGRAPH AND UPRIGHT AND SUPINE AP RADIOGRAPHS OF THE ABDOMEN CLINICAL HISTORY: Vomiting. Evaluate for obstruction. Recent hernia surgery. COMPARISON STUDY: CT of the abdomen and pelvis May 20, 2010 and chest radiograph November 10, 2017. FINDINGS: Pneumomediastinum and soft tissue gas within the neck is no longer visualized when compared to exam of November 10, 2017. Lung volumes are mildly diminished but improved since prior exam. There is no consolidation to suggest pneumonia. Cardiac size is normal. There is no evidence for pulmonary edema. There is no free air. There is a paucity of bowel gas. There is no convincing evidence for a bowel obstruction. IMPRESSION: 1. No free air or radiographic evidence for a bowel obstruction. 2. Mildly diminished lung volumes which appear improved when compared to exam of November 10, 2017. Electronically signed by: Isaac Tejada M.D. 11/21/2017 6:03 PM Laboratory Results 11/21/17 17:10 Red Blood Count 4.74, Mean Corpuscular Volume 86.5, Mean Corpuscular Hemoglobin 29.3, Mean Corpuscular Hemoglobin Concent 33.9, Mean Platelet Volume 10.3, Neutrophils (%) (Auto) 76.6, Lymphocytes (%) (Auto) 16.0, Monocytes (%) (Auto) 5.4, Eosinophils (%) (Auto) 1.5, Basophils (%) (Auto) 0.2, Neutrophils # (Auto) 9.10, Lymphocytes # (Auto) 1.90, Monocytes # (Auto) 0.64, Eosinophils # (Auto) 0.18, Basophils # (Auto) 0.02 11/21/17 17:10 Test 11/21/17 17:10 White Blood Count 11.87 K/uL (4.8-10.8) Red Blood Count 4.74 M/uL (4.2-5.4) Hemoglobin 13.9 g/dL (12.0-16.0) Hematocrit 41.0 % (37-47) Mean Corpuscular Volume 86.5 fL (80-100) Mean Corpuscular Hemoglobin 29.3 pg (25-34) Mean Corpuscular Hemoglobin Concent 33.9 g/dl (32-36) Platelet Count 358 K/uL (130-400) Mean Platelet Volume 10.3 fL (7.4-10.4) Neutrophils (%) (Auto) 76.6 % Lymphocytes (%) (Auto) 16.0 % Monocytes (%) (Auto) 5.4 % Eosinophils (%) (Auto) 1.5 % Basophils (%) (Auto) 0.2 % Neutrophils # (Auto) 9.10 K/uL (1.4-6.5) Lymphocytes # (Auto) 1.90 K/uL (1.2-3.4) Monocytes # (Auto) 0.64 K/uL (0.11-0.59) Eosinophils # (Auto) 0.18 K/uL (0-0.5) Basophils # (Auto) 0.02 K/uL (0-0.2) RDW Standard Deviation 41.1 fL (36.4-46.3) RDW Coefficient of Variation 12.9 % (11.5-14.5) Immature Granulocyte % (Auto) 0.3 % Immature Granulocyte # (Auto) 0.03 K/uL (0.00-0.02) Anion Gap 11.0 mmol/L (3-11) Est Creatinine Clear Calc Drug Dose 52.0 ml/min Estimated GFR () 61.6 Estimated GFR (Non- 53.2 BUN/Creatinine Ratio 12.8 (10-20) Calcium Level 9.5 mg/dl (8.5-10.1) Total Bilirubin 0.5 mg/dl (0.2-1) Direct Bilirubin 0.1 mg/dl (0-0.2) Aspartate Amino Transf (AST/SGOT) 25 U/L (15-37) Alanine Aminotransferase (ALT/SGPT) 29 U/L (12-78) Alkaline Phosphatase 129 U/L (45-117) Total Protein 8.1 gm/dl (6.4-8.2) Albumin 3.7 gm/dl (3.4-5.0) Lipase 224 U/L (73-393) Laboratory results as reviewed by me. Medications Administered Medications (Trade) Dose Ordered Sig/Mahad Route Start Time Stop Time Status Last Admin Dose Admin Ondansetron HCl (Zofran Inj) 4 mg NOW STAT IV 11/21/17 17:01 11/21/17 17:03 DC 11/21/17 17:16 4 MG Ondansetron HCl (ZOFRAN ODT 4MG Home Pack) 1 homepack UD ONCE PO 11/21/17 18:15 11/21/17 18:16 DC 11/21/17 18:55 1 HOMEPACK ED Course 1650: The patient was evaluated in room C11. A complete history and physical exam was performed. 1700: Zofran Inj 4mg IV 1812: I spoke to Dr. Aguayo - Thoracic Surgery, [facility]. He stated that the patient can be sent home and he will do a scope on her later. 1813: I reevaluated and updated the patient on her results. She feels better at this time. 1814: Ondansetron HCl 1 homepack PO 1855: Upon reevaluation, the patient appeared to have improvement of her symptoms. I discussed tonight's findings with her. She verbalized agreement of the treatment plan. The patient was discharged home. Medical Decision This is a 62-year-old female who presents with vomiting. Differential diagnosis includes gastritis, bowel obstruction, ileus, esophagitis, GI bleed. I did perform a limited focused review of portions of the patient's old chart on the electronic medical record. The patient was admitted on November 09, 2016, for a Luz fundoplication. The procedure was performed by Dr. Aguayo - Thoracic Surgery, [facility]. I did evaluate the patient as noted above. Patient is presenting with vomiting brown material prior to arrival. She denies seeing any blood or coffee ground emesis. She also states that she did drink coffee and had a Nexium prior to vomiting. Her examination here is unremarkable. She has no tenderness to palpation. She has guaiac-negative stool. IV access was established. I did treat her with Zofran IV. I did order and personally review the patient's abdominal and chest x-rays as described above. There is no evidence of obstruction or free air. I did order and review the patient's blood work as noted in the electronic medical record. Her white blood cell count is elevated but this is likely from vomiting. Her hemoglobin is normal. I did reassess the patient. She is feeling better and no longer nauseated. I did discuss the test results with her. I did discuss the case with Dr. Aguayo who had sent her in. He recommended that she follow up as an outpatient for endoscopy later this week. The patient was happy with this plan and was discharged with a prescription for Zofran. Medication Reconcilliation Current Medication List: was personally reviewed by me Blood Pressure Screening Patient's blood pressure: Elevated blood pressure Blood pressure disposition: Elevated BP felt to be situational Impression Primary Impression: Vomiting Additional Impression: History of Luz fundoplication Scribe Attestation The scribe's documentation has been prepared under my direct and personally reviewed by me in its entirety. I confirm that the note above accurately reflects all work, treatment, procedures, and medical decision making performed by me. Departure Information Dispostion Home / Self-Care Prescriptions Ondasetron Odt (ZOFRAN ODT) 4 Mg Tab 4 MG SL Q6H for Nausea, #6 TAB Prov: Sivakumar Flores M.D. 11/21/17 Referrals Ras Craft M.D. (PCP) Forms HOME CARE DOCUMENTATION FORM, IMPORTANT VISIT INFORMATION Patient Instructions My [facility] Additional Instructions You have been examined and treated today on an emergency basis only. This is not a substitute for, or an effort to provide, complete comprehensive medical care. It is impossible to recognize and treat all injuries or illnesses in a single emergency department visit. It is therefore important that you follow up closely with your physician for upper endoscopy later this week. Call as soon as possible for an appointment. Return for worsening symptoms or if you develop fever, significant abdominal pain, black or tarry stools, rectal bleeding, lightheadedness or any other concerning symptoms. Problem Qualifiers Primary Impression: Vomiting Vomiting type: unspecified Vomiting Intractability: non-intractable Nausea presence: with nausea Qualified Codes: R11.2 - Nausea with vomiting, unspecified
== END 2017-11-21 18:55 | disposition home or self-care (01) ==
LOC: C.EDB 16:47 → C.EDC 18:55
DX: R11.2 Nausea with vomiting, unspecified (principal); Z98.890 Other specified postprocedural states; K21.9 Gastro-esophageal reflux disease without esophagitis; I10 Essential (primary) hypertension; E78.5 Hyperlipidemia, unspecified; M19.90 Unspecified osteoarthritis, unspecified site; G89.29 Other chronic pain; Z79.899 Other long term (current) drug therapy

== ENCOUNTER → 2017-11-23 | Day surgery (SDC) | payer OTHER ==
[~2017-11-23] VITALS: Ht 160 cm; Wt 81.8 kg
[~2017-11-23] MED LIST changes: -DOCU-94 PO; +DOCU100C31 PO; +FENTANYL CITRATE INJ 50 MCG/1 ML 2 ML VIAL ONE; +LIDOCAINE HCL 2% 2 ML VIAL (20MG/ML) ONE; -MELO15TA4 PO; -NXM/40 PO; +ONDA4TAB10 SL; +OPTIRAY 320 IV PRN; +PROPOFOL IV EMULSION 10 MG/ML 20 ML VIAL IV ONE; +SODIUM CHLORIDE 0.9% 500ML 500 ML IV ONE; -ULT/50 PO
[2017-11-23 09:17] VITALS: Ht 160 cm; Wt 81.8 kg
[2017-11-23 09:26] VITALS: TEMP 36.8
--- NOTE | 2017-11-23 10:05 | Endo History and Physical ---
History & Physical Date of Service: Nov 23, 2017. Chief Complaint: Vomiting Blood Referring Physician: Dede History of Present Illness 62 yo CF who presents for EGD secondary to hematemesis. Past Surgical History Hx Cardiac Surgery: No Hx Internal Defibrillator: No Hx Pacemaker: No Hx Abdominal Surgery: Yes (Hiatal hernia repair, ) Hx of Implantable Prosthesis: No Hx Post-Op Nausea and Vomiting: No Hx Cancer Surgery: No Hx Thoracic Surgery: No Hx Orthopedic: No Hx Urinary Tract Surgery: No Family History None Social History Smoking Status: Never Smoker Hx Substance Use: No Hx Alcohol Use: No Allergies Coded Allergies: Aspirin (Verified Allergy, Intermediate, RASH, 11/21/17) Cephalexin (Verified Allergy, Intermediate, Blisters, 11/21/17) Reported by PT. Cephalosporins (Verified Allergy, Intermediate, BLISTERS, 11/21/17) Current Medications Reported Home Medications Medications Dose Route/Sig Max Daily Dose Days Date Category Zofran Odt (Ondansetron HCl) 4 Mg Tab 4 Mg SL Q6H 11/21/17 Rx Docusate Sodium 100 Mg Cap 100 Mg PO DAILY 7 11/21/17 Reported Vitamin D3 (Cholecalciferol) 1,000 Unit Tab 1,000 Units PO QAM 10/25/16 Reported Cymbalta (Duloxetine HCl) 30 Mg Cap 30 Mg PO HS 10/25/16 Reported Zantac (Ranitidine HCl) 300 Mg Tab 300 Mg PO HS 10/25/16 Reported Zestril (Lisinopril) 40 Mg Tab 40 Mg PO QAM 10/25/16 Reported Multivitamin (Multiple Vitamin) 1 Tab Tab 1 Tab PO QAM 10/25/16 Reported Simvastatin 40 Mg Tab 40 Mg PO QAM 11/29/14 Reported Vital Signs Weight (Kilograms): 81.82 Height (Feet): 5 Height (Inches): 3 Date Time Temp Pulse Resp B/P (MAP) Pulse Ox O2 Delivery O2 Flow Rate FiO2 11/23/17 09:26 36.8 79 16 112/65 (81) 97 Room Air Physical Exam General Appearance: WD/WN, no apparent distress Respiratory/Chest: Auscultation: breath sounds normal Cardiovascular: Heart Auscultation: RRR Abdomen: Bowel Sounds: normal Inspection & Palpation: soft, non-distended, no tenderness, guarding & rebound Assessment and Plan Assessment: 62 yo CF who presents for EGD secondary to hematemesis. Plan: Proceed with EGD.
--- NOTE | 2017-11-23 10:39 | Discharge Instructions ---
Endoscopy Patient Instructions Date / Procedure(s) Performed Nov 23, 2017. EGD Allergy Information Coded Allergies: Aspirin (Verified Allergy, Intermediate, RASH, 11/21/17) Cephalexin (Verified Allergy, Intermediate, Blisters, 11/21/17) Reported by PT. Cephalosporins (Verified Allergy, Intermediate, BLISTERS, 11/21/17) Discharge Date / Findings Nov 23, 2017. Gastritis Retained gastric contents Retained esophageal contents Medication Instructions OK to resume all medications today as prescribed Reported Home Medications Medications Dose Route/Sig Max Daily Dose Days Date Category Zofran Odt (Ondansetron HCl) 4 Mg Tab 4 Mg SL Q6H 11/21/17 Rx Docusate Sodium 100 Mg Cap 100 Mg PO DAILY 7 11/21/17 Reported Vitamin D3 (Cholecalciferol) 1,000 Unit Tab 1,000 Units PO QAM 10/25/16 Reported Cymbalta (Duloxetine HCl) 30 Mg Cap 30 Mg PO HS 10/25/16 Reported Zantac (Ranitidine HCl) 300 Mg Tab 300 Mg PO HS 10/25/16 Reported Zestril (Lisinopril) 40 Mg Tab 40 Mg PO QAM 10/25/16 Reported Multivitamin (Multiple Vitamin) 1 Tab Tab 1 Tab PO QAM 10/25/16 Reported Simvastatin 40 Mg Tab 40 Mg PO QAM 11/29/14 Reported Provider Instructions Activity Restrictions - No exercising or heavy lifting for 24 hours. - Do not drink alcohol the day of the procedure. - Do not drive a car or operate machinery until the day after the procedure. - Do not make any important decisions or sign important papers in 24 hours after the procedure. Following Day: - Return to full activity which may include returning to work/school. Diet Start your diet with liquids and light foods (jello, soup, juice, toast). Then eat your usual diet if not nauseated. Treatment For Common After Affects For mild abdominal pain, bloating, or excessive gas: - Rest - Eat lightly - Lie on right side Recommend Barium swallow for further evaluation of patient's symptoms Follow-Up Information Follow-up with Dede as scheduled Anesthesia Information What You Should Know You have had a procedure that required some medicine to reduce anxiety and discomfort. This treatment is called moderate sedation. After receiving the treatment, you may be sleepy, but you will be able to breathe on your own. The effects of the treatment may last for several hours. Follow these instructions along with Activity/Diet recommendations noted above: * Do NOT do anything where dizziness or clumsiness would be dangerous. * Rest quietly at home today, then you can be up and about tomorrow. * Have a responsible person stay with you the rest of today. * You may have had an I.V. today. If so, you may take the dressing off later today. Recommendations Call your doctor if: * Trouble breathing * Continuous vomiting for more than 24 hours * Temperature above 101 degrees * Severe abdominal pain or bloating * Pain not relieved by pain medicine ordered * There is increased drainage or redness from any incision * A large amount of rectal bleeding greater than 2-3 tablespoons. (If you had a polyp/s removed or have hemorrhoids, a small amount of blood - from the rectum is to be expected.) * You have any unanswered questions or concerns. IN THE EVENT OF A SERIOUS EMERGENCY, GO TO THE NEAREST EMERGENCY ROOM Your discharge instructions were prepared by provider Joey Frost. Patient Instructions Signature Page Ora Fernández Patient (or Guardian) Signature/Date: I have read and understand the instructions given to me by my caregivers. Caregiver/RN/Doctor Signature/Date: The above-named patient and/or guardian has received patient instructions on this date. + Original Patient Signature Page (only) stays with chart. Please make copy for patient.
--- NOTE | 2017-11-23 10:45 | GI REPORT ---
Procedure Date: 11/23/2017 9:55 AM Procedure: Upper GI endoscopy Indications: Hematemesis Medicines: Monitored Anesthesia Care Complications: No immediate complications. Estimated Blood Loss: Estimated blood loss: none. Procedure: Pre-Anesthesia Assessment: - Prior to the procedure, a History and Physical was performed, and patient medications and allergies were reviewed. The patient's tolerance of previous anesthesia was also reviewed. The risks and benefits of the procedure and the sedation options and risks were discussed with the patient. All questions were answered, and informed consent was obtained. Prior Anticoagulants: The patient has taken no previous anticoagulant or antiplatelet agents. ASA Grade Assessment: II - A patient with mild systemic disease. After reviewing the risks and benefits, the patient was deemed in satisfactory condition to undergo the procedure. After obtaining informed consent, the endoscope was passed under direct vision. Throughout the procedure, the patient's blood pressure, pulse, and oxygen saturations were monitored continuously. The scope was introduced through the mouth, and advanced to the second part of duodenum. The upper GI endoscopy was accomplished without difficulty. The patient tolerated the procedure well. Findings: Fluid was found in the middle third of the esophagus and in the lower third of the esophagus. Evidence of a Luz fundoplication was found in the gastric fundus. The wrap appeared not intact. This was traversed. Localized mild inflammation characterized by congestion (edema) and erythema was found in the stomach. A medium amount of food (residue) was found in the gastric body. The examined duodenum was normal. Impression: - Fluid in the middle third of the esophagus and in the lower third of the esophagus. - A Luz fundoplication was found. The wrap appears not intact. - Gastritis. - A medium amount of food (residue) in the stomach. - Normal examined duodenum. - No specimens collected. Recommendation: - Resume previous diet. - Continue present medications. - Perform an esophagram at appointment to be scheduled. - Return to referring physician as previously scheduled. Joey Frost, DO 11/23/2017 10:44:46 AM This report has been signed electronically. Note Initiated On: 11/23/2017 9:55 AM I attest to the content of the Intraoperative Record and orders documented therein, exceptions below
[2017-11-23 11:11] VITALS: BP 103/65; PULSE 72; O2SAT 96
--- NOTE | 2017-11-23 11:52 | Anesthesiology Progress Note ---
Anesthesia Post Op Note Date & Time Nov 23, 2017 at 11:51 Vital Signs Pain Intensity: 0 Vital Signs Past 12 Hours Date Time Temp Pulse Resp B/P (MAP) Pulse Ox O2 Delivery O2 Flow Rate FiO2 11/23/17 11:11 72 18 103/65 (78) 96 Room Air Oxymask 11/23/17 10:56 69 18 103/60 (74) 95 Oxymask 6 11/23/17 10:41 78 16 86/42 (57) 95 Oxymask 12 11/23/17 09:26 36.8 79 16 112/65 (81) 97 Room Air Notes Mental Status: alert / awake / arousable, participated in evaluation Pt Amnestic to Procedure: Yes Nausea / Vomiting: adequately controlled Pain: adequately controlled Airway Patency, RR, SpO2: stable & adequate BP & HR: stable & adequate Hydration State: stable & adequate Anesthetic Complications: no major complications apparent Patient had fluid in her esophagus noted at the beginning of the EGD but no active aspiration was noted. Patient noted to have cough that has persisted after surgery until today per patient report. She was easily weaned off of oxygen. Patient to get CT scan today relating to her previous surgery.
--- NOTE | 2017-11-23 12:52 | DIAGNOSTIC IMAGING REPORT ---
ABDOMINAL CT WITH INTRAVENOUS AND ORAL CONTRAST HISTORY: vomiting s/p fundoplication TECHNIQUE: Multiaxial CT images of the abdomen were performed following the use of intravenous and oral contrast. COMPARISON STUDY: Abdomen and pelvis CT 05/20/2010 is used for comparison. FINDINGS: Bibasilar densities favor subsegmental atelectasis. No pneumoperitoneum. No pneumatosis. No suspicious lytic or blastic osseous lesions. Moderate thickening of the distal esophageal wall and proximal stomach. There also mild fat stranding/edema at this location. Patient is status post a recent Luz fundoplication. The wrap appears intact. Mild dilatation within the proximal wrap of the stomach which is filled with contrast. However, contrast extends into the distal stomach. Therefore, no evidence for significant gastric obstruction. No extraluminal fluid collections to suggest an abscess. Mild hepatic steatosis. No hepatic or splenic masses. The pancreas, adrenal glands, and gallbladder are unremarkable. No hydronephrosis. An irregular 1.4 x 0.8 cm hypodense exophytic lesion within the lower pole the left kidney. There is also an irregular 1.5 x 0.7 cm hypodense focus inferior to the left kidney on image 238. Minimal fat stranding/edema at the celiac artery is also likely due to the recent postoperative change. IMPRESSION: 1. The patient is status post a recent Luz fundoplication. The wrap appears intact. Mild dilatation within the proximal wrap of the stomach which is filled with contrast. However contrast extends into the distal stomach. Therefore, no evidence for significant gastric obstruction. 2. No extraluminal fluid collections or gas seen within the region of the Luz fundoplication. 3. There are 2 small irregular fluid collections abutting the lower pole the left kidney and inferior to the left kidney as described above. This could represent tiny postoperative seroma/hematomas. One month follow-up is recommended to ensure complete resolution. Electronically signed by: Brian Bosch M.D. 11/23/2017 12:51 PM Dictated Date/Time: 11/23/2017 12:41 PM
== END | disposition home or self-care (01) ==
LOC: C.GI 08:55
PROVIDERS: ATTEND Internal Medicine
DX: K92.0 Hematemesis (principal); K22.9 Disease of esophagus, unspecified; K29.70 Gastritis, unspecified, without bleeding; F32.9 Major depressive disorder, single episode, unspecified; E66.9 Obesity, unspecified; I10 Essential (primary) hypertension; Z98.890 Other specified postprocedural states

== ENCOUNTER → 2017-12-02 | Outpatient (CLI) | payer OTHER | END | disposition home or self-care (01) | LOC: C.RAD 09:37 | DX: K44.9 Diaphragmatic hernia without obstruction or gangrene (principal) ==

== ENCOUNTER 2017-12-14 07:33 | Inpatient (IN) | payer OTHER ==
[2017-12-08 09:53] VITALS: BMI 29.0
[~2017-12-14] VITALS: Ht 160 cm; Wt 75.9 kg
[2017-12-14] VITALS (9 sets, daily range): BP systolic 119–146; BP diastolic 74–90; PULSE 75–92; TEMP 36.9–37.3; O2SAT 91–99; Ht 160 cm; Wt 75.9 kg
[~2017-12-14 07:33] MED LIST changes: +ACETAMINOPHEN 1000 MG/100 ML IV IV ONE; +DOCU-94 PO; -DOCU100C31 PO; -FENTANYL CITRATE INJ 50 MCG/1 ML 2 ML VIAL ONE; +LACTATED RINGER'S 1000ML 1,000 ML IV SCH; -LIDOCAINE HCL 2% 2 ML VIAL (20MG/ML) ONE; -OPTIRAY 320 IV PRN; -PROPOFOL IV EMULSION 10 MG/ML 20 ML VIAL IV ONE; -SODIUM CHLORIDE 0.9% 500ML 500 ML IV ONE
[2017-12-14] MEDS ORDERED: DEXAMETHASONE SOD INJ 4 MG/ML VIAL ONE (08:28)
[2017-12-14] MEDS ORDERED: ONDANSETRON INJ 2 MG/ML 2 ML VIAL ONE ×2 (08:28→12:34)
[2017-12-14] MEDS ORDERED: GLYCOPYRROLATE INJ 0.2 MG/ML VIAL ONE (08:28)
[2017-12-14] MEDS ORDERED: ROCURONIUM BROMIDE 10 MG/ML 5 ML VIAL IV ONE ×3 (08:28→15:12)
[2017-12-14] MEDS ORDERED: PROPOFOL IV EMULSION 10 MG/ML 20 ML VIAL IV ONE ×2 (08:28→12:34)
[2017-12-14] MEDS ORDERED: NEOSTIGMINE METHYLSULFATE 5 MG/5 ML SYR ONE (08:28)
[2017-12-14] MEDS ORDERED: LIDOCAINE HCL 2% 2 ML VIAL (20MG/ML) ONE (08:28)
[2017-12-14] MEDS ORDERED: MIDAZOLAM HCL 1 MG/ML 2ML VIAL ONE (08:32)
[2017-12-14] MEDS ORDERED: FENTANYL CITRATE INJ 50 MCG/1 ML 2 ML VIAL ONE ×3 (08:32→13:23)
[2017-12-14] MEDS ORDERED: SUCCINYLCHOLINE CHLORIDE 20 MG/ML 10 ML VIAL IV ONE (08:36)
[2017-12-14] MEDS ORDERED: CLINDAMYCIN PHOS 150 MG/ML 2 ML VIAL ONE (10:30)
[2017-12-14] MEDS ORDERED: SODIUM CHLORIDE 0.9% PF 50 ML VIAL ONE ×3 (10:40→14:39)
[2017-12-14] MEDS ORDERED: BUPIVACAINE LIPOSOME 1/3% 266 MG/20 ML VIAL INFIL ONE ×2 (10:40→14:39)
[2017-12-14] MEDS ORDERED: BUPIVACAINE 0.5 % 5 MG/1 ML MPF 30ML VIAL ONE ×2 (10:41→14:39)
[2017-12-14] MEDS ORDERED: PHENYLEPHRINE HCL INJ 10 MG/ML VIAL ONE ×2 (10:42→13:35)
[2017-12-14] MEDS ORDERED: SURGICEL ABSORB HEMOSTAT 2IN X 14IN TOP ONE (11:28)
[2017-12-14] MEDS ORDERED: ONDANSETRON INJ 2 MG/ML 2 ML VIAL IV PRN ×2 (12:15→16:30)
[2017-12-14] MEDS ORDERED: PROMETHAZINE HCL INJ 6.25 MG in SODIUM CHLORIDE 0.9% 50ML 50 ML IV PRN (12:15)
[2017-12-14] MEDS ORDERED: EpHEDrine SULFATE INJ 50 MG/ML AMP IV PRN (12:15)
[2017-12-14] MEDS ORDERED: ATROPINE SULFATE 0.1 MG/ML 5ML SYR IV PRN (12:15)
[2017-12-14] MEDS ORDERED: HYDROmorphone INJ 1 MG/ML SYR IV PRN (12:15)
--- NOTE | 2017-12-14 16:03 | [facility] Post Operative Brief Note ---
Immediate Operative Summary Operative Date Dec 14, 2017. Pre-Operative Diagnosis Disruption of previous Luz fundoplication, 11-09-17 Post-Operative Diagnosis Disruption of previous Luz fundoplication, 11-09-17 Procedure(s) Performed Re-Operation Laparoscopic Luz Fundoplication Jake Surgeon Dr. Jose Aguayo Engineer Exhauster Surgeon(s) Joshua Abraham PA-C Estimated Blood Loss mL Findings Consistent with Post-Op Diagnosis Specimens No pathology specimens per surgeon Anesthesia Type General
[2017-12-14] MEDS: FENTANYL CITRATE INJ 50 MCG/1 ML 2 ML VIAL IV PRN ×2 (16:39→16:45)
--- NOTE | 2017-12-14 17:34 | Anesthesiology Progress Note ---
Anesthesia Post Op Note Date & Time Dec 14, 2017 at 17:33 Vital Signs Pain Intensity: 3 Vital Signs Past 12 Hours Date Time Temp Pulse Resp B/P (MAP) Pulse Ox O2 Delivery O2 Flow Rate FiO2 12/14/17 17:15 86 18 126/77 97 Nasal Cannula 3 12/14/17 17:05 36.5 76 18 136/81 92 Nasal Cannula 4 12/14/17 16:55 87 17 134/65 92 Oxymask 5 12/14/17 16:45 77 18 129/78 95 Oxymask 8 12/14/17 16:35 87 15 131/76 97 Oxymask 8 12/14/17 16:28 36.3 85 18 143/85 97 Oxymask 8 12/14/17 08:14 37.1 75 18 146/79 (101) 96 Room Air Notes Mental Status: alert / awake / arousable, participated in evaluation Pt Amnestic to Procedure: Yes Nausea / Vomiting: adequately controlled Pain: adequately controlled Airway Patency, RR, SpO2: stable & adequate BP & HR: stable & adequate Hydration State: stable & adequate Anesthetic Complications: no major complications apparent The patient did well. She had a sore throat in the PACU but was otherwise comfortable and her vitals are all stable. Her postop SpO2 was 97 on 3 L NC. She will have continuous pulse oximeter monitoring overnight.
[2017-12-14] MEDS: ACETAMINOPHEN IV 1,000 MG in EMPTY BAG 0 ML IV SCH (20:09)
--- NOTE | 2017-12-14 20:13 | OPERATIVE REPORT ---
DATE OF OPERATION: 12/14/2017 PREOPERATIVE DIAGNOSIS: Disruption of Luz fundoplication. POSTOPERATIVE DIAGNOSIS: Same. PROCEDURE: Reoperative Robot-assisted laparoscopic Luz fundoplication. SURGEON: Jose Aguayo MD. MANGLE TENDER: Joshua TALAMANTES, (Mr. Abraham was at the bedside while I was at the console. He was instrumental in first assisting, passing a materials and sutures and closing the incisions at the conclusion of the case). ANESTHESIA: General anesthesia with endotracheal intubation. INDICATION FOR PROCEDURE AND FINDINGS: This is a 62-year-old female who had marked reflux which had failed medical therapy and on 11/09/2017, I took the patient to the operating room and did an uncomplicated robot-assisted laparoscopic Luz fundoplication. Our swallow looked quite good the following day. She was quite good and was quite happy as her severe reflux at night had resolved. About 10 days after surgery, the patient developed signs and symptoms consistent with a viral gastroenteritis with fevers, chills, diarrhea and vomiting. It was soon after this that she began developing difficulty with recurrent reflux symptoms. We repeated a swallow and she had wide open reflux and the wrap itself had changed. It did not appear to be completely disrupted. 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 She was quite miserable actually so I told her we would just simply take her back to the operating room. On 12/14/2017, the patient was brought to the operating room, we did a reoperative robotic assisted laparoscopic Luz fundoplication. I took down the entire wrap. It did not appear to me to be disrupted. The sutures had to be cut. I then repaired this again and did a floppy Luz with just 3 sutures. She tolerated this quite well and was extubated in the room with negligible blood loss. DESCRIPTION OF THE PROCEDURE: The patient was brought to operating room and laid in the supine position. General anesthesia induced and endotracheal intubation was performed. After prepping and draping in usual sterile fashion in the supine position and calling in appropriate timeout and given appropriate antibiotics, a Veress needle was used to enter the incision which we had used previously. I checked the CT scan and there were no bowel adhesions underneath this. We then insufflated CO2 through the Veress needle and changed this to a 5 mm port and put a 5 mm the scope and it could be seen that we were in peritoneal cavity. We used all of her prior ports. There were two 8 mm ports in the subcostal margin bilaterally. There was 5 mm ports far laterally, one for a 5 mm grasper and one for the liver retractor. We then placed a 12 mm port to the right of the umbilicus for the assistance port. There were adhesions and I took these down without difficulty. There were marked adhesions of the omentum and the liver but with the use of the robot and CO2 insufflation, we were able to see quite well and I took these down without difficulty. This brought us down to the stomach. I freed up the stomach anteriorly and then took the omentum off using a Harmonic scalpel. The greater curvature remained free and I was able to get posterior quite easily to the left crura. There were more adhesions on the right; however, I was finally able to take these down and got to the gastroesophageal junction that could be seen at the diaphragm. The esophageal hiatus repair was intact. I was able to get around the esophagus without difficulty and brought the dissection down. It then came up to the fundoplication. It appeared to be intact and although there was some of course inflammation. I meticulously took down the sutures and freed up the entire fundus. I then took down the wrap completely posteriorly and identified the right diaphragmatic crura. Then we were able to take this out posteriorly without difficulty. Care was taken to avoid any traction or retraction of the pancreas and this appeared to be intact. After taking all this down, I then was able to get the wrap back around and I completely cleaned all of this off. It was a bit ragged, but we had taken it down on the posterior fundus so I did a running 3-0 silk suture and closed up this area even though it did not appear that we had any type of opening it did appear to be a bit traumatized by our taking down the repair. The anterior fundus looked fine. I then had freed up everything posteriorly. We had plenty of stomach. Also, there was a good amount of esophagus in the peritoneal cavity. We had at least 4 cm. I then placed a 2-0 silk [id number] suture to bring the posterior and anterior fundus together. This was fairly floppy, I was able to get an instrument under this quite easily. I then placed another 2-0 silk suture and included the esophagus with a good bite superior to this. The wrap sat very nicely. I then put a 2-0 silk suture from the fundus on the left to the diaphragmatic crura. I am quite happy with the appearance of this. We really had no blood loss. We removed all the instruments and undocked. We then placed the patient back in a supine position and in fact put her in a bed of Trendelenburg put warm saline down around the esophageal hiatus and placed an NG tube and insufflated O2 and saw no bubbling. It should be noted we had a 48 [place] bougie while we did our repair. The patient tolerated this procedure quite well and was extubated in the room. We did use 266 mg of Exparel reconstituted with 30 mL of 0.5% lidocaine and 100 mL of normal saline to inject all of the incisions including the fascia. She tolerated it quite well. I attest to the content of the Intraoperative Record and any orders documented therein. Any exception s are noted below.
[2017-12-14] MEDS: D5W AND 1/2NSS 1,000 ML IV SCH (20:57)
[2017-12-14] MEDS: MoRPHine SULFATE 2 MG/ML CARP IV PRN (22:22)
[2017-12-14] MEDS: METOCLOPRAMIDE HCL INJ 5 MG/ML 2 ML VIAL IV. SCH (22:22)
[2017-12-15] VITALS (8 sets, daily range): BP systolic 118–127; BP diastolic 76–78; PULSE 87–97; TEMP 36.8–37.1; O2SAT 88–96
[2017-12-15] MEDS: ACETAMINOPHEN IV 1,000 MG in EMPTY BAG 0 ML IV SCH (03:28)
[2017-12-15] MEDS ORDERED: NURSING DECISION MEDICATION ORDER SCH (05:00)
[2017-12-15 05:20] LABS: INR 1.1 (0.9-1.1)
[2017-12-15] MEDS: METOCLOPRAMIDE HCL INJ 5 MG/ML 2 ML VIAL IV. SCH (05:31)
[2017-12-15] MEDS: MoRPHine SULFATE 2 MG/ML CARP IV PRN (07:23)
[2017-12-15] MEDS: D5W AND 1/2NSS 1,000 ML IV SCH (07:33)
[2017-12-15] MEDS ORDERED: METOCLOPRAMIDE HCL 10 MG TAB PO ONE (08:35)
--- NOTE | 2017-12-15 08:38 | DIAGNOSTIC IMAGING REPORT ---
(BARIUM SWALLOW) ESOPHAGUS CLINICAL HISTORY: delroy fundoplication COMPARISON STUDY: 12/02/2017 FLUOROSCOPY TIME: 1.9 minutes. NUMBER OF FLUOROSCOPIC IMAGES: 12 FINDINGS: The patient swallowed barium without difficulty. There is no aspiration. There are postsurgical changes of a Delroy fundoplication. There is no barium extravasation. No reflux is identified. There is disordered esophageal motility. Contrast is visualized passing into the transverse duodenum. IMPRESSION: 1. Postsurgical changes of a Delroy fundoplication 2. No reflux identified 3. Disordered esophageal motility Electronically signed by: Marcus Chisholm M.D. 12/15/2017 8:36 AM Dictated Date/Time: 12/15/2017 8:35 AM
[2017-12-15] MEDS ORDERED: ENOXAPARIN 40 MG/0.4 ML SYR SQ SCH (09:00)
--- NOTE | 2017-12-15 09:07 | SURGERY PROGRESS NOTE ---
DATE: 12/15/2017 Ms. Fernández is a 62-year-old female who underwent a robot-assisted laparoscopic Luz fundoplication on 11/09/2016. She did well initially; however, she developed signs and symptoms consistent with gastroenteritis and had severe vomiting about 10 days after surgery. She then developed signs and symptoms consistent with severe reflux and her barium swallow showed this to be the case. On 12/14/2017, I took the patient to the operating room and did a reoperative robot-assisted laparoscopic Luz fundoplication. We did a floppy Luz and this came together very nicely. This morning she underwent a barium swallow which showed no evidence of extravasation and I thought that the wrap looked quite good. She does have some mild dysmotility of her esophagus but her bigger problem had been reflux. She looks good. We will start her on clear liquids. I will see her later today. We may be able to discharge her. MTDSilvino
[2017-12-15] MEDS ORDERED: ACETAMINOPHEN 325 MG TAB PO SCH (09:30)
[2017-12-15] MEDS ORDERED: ONDANSETRON 4MG OD TAB PO SCH (09:30)
--- NOTE | 2017-12-15 10:05 | Anesthesiology Progress Note ---
Anesthesia Post Op Note Date & Time Dec 15, 2017 at 10:04 Vital Signs Vital Signs Past 12 Hours Date Time Temp Pulse Resp B/P (MAP) Pulse Ox O2 Delivery O2 Flow Rate FiO2 12/15/17 09:02 37.0 87 16 122/76 (91) 93 2.0 12/15/17 05:45 92 Nasal Cannula 1.0 12/15/17 05:40 88 Room Air 12/15/17 05:35 37.1 93 16 127/78 (94) 96 Nasal Cannula 4.0 12/15/17 01:35 36.8 92 18 118/76 (90) 94 Nasal Cannula 3.0 12/14/17 23:46 94 Nasal Cannula 4.0 12/14/17 23:40 Nasal Cannula 4.0 12/14/17 23:35 37.3 91 16 119/74 (89) Room Air Notes Mental Status: alert / awake / arousable, participated in evaluation Pt Amnestic to Procedure: Yes Nausea / Vomiting: adequately controlled Pain: adequately controlled Airway Patency, RR, SpO2: stable & adequate BP & HR: stable & adequate Hydration State: stable & adequate Anesthetic Complications: no major complications apparent
[2017-12-15] MEDS ORDERED: METOCLOPRAMIDE HCL 10 MG TAB PO SCH (12:00)
[2017-12-15] MEDS ORDERED: HYDR-3419 PO (13:16)
[2017-12-15] MEDS ORDERED: RGL10 PO (13:16)
[2017-12-15] MEDS ORDERED: ONDA4TAB10 SL (13:16)
--- NOTE | 2017-12-15 13:19 | Discharge Instructions ---
Discharge Instructions Date of Service Dec 15, 2017. Admission Reason for Admission: Slipped Luz Discharge Discharge Diagnosis / Problem: Slipped Luz Discharge Goals Goal(s): Decrease discomfort, Improve function Activity Recommendations Activity Limitations: as noted below Lifting Limitations: no more than 5 pounds (until cleared by Dr. Aguayo) 1. Do not drive if taking vicodin. 2. DO not take tylenol if using vicodin. 3. Do not drive until cleared by Dr. Aguayo. 4. DO not lift objects heavier than 5 pounds until cleared to do so by Dr. Aguayo. 5. Continue clear liquid diet until instructed otherwise by Dr. Aguayo. . Instructions / Follow-Up Instructions / Follow-Up 1. Office appointment with Dr. Aguayo in 1 week. Office will call you with date and time of appointment. Current Hospital Diet Patient's current hospital diet: Clear Liquid Diet Discharge Diet Recommended Diet: Clear Liquid Diet Procedures Procedures Performed: Re-Operation Laparoscopic Luz Fundoplication DaVinci Pending Studies Studies pending at discharge: no Medical Emergencies . Who to Call and When: Medical Emergencies: If at any time you feel your situation is an emergency, please call 911 immediately. . Non-Emergent Contact Non-Emergency issues call your: Surgeon Call Non-Emergent contact if: you have a fever, your pain is not controlled, wound has increased drainage . "Provider Documentation" section prepared by Joshua Abraham. . VTE Core Measure Inpt VTE Proph given/why not?: Enoxaparin (Lovenox)SQ
--- NOTE | 2017-12-15 16:41 | DISCHARGE SUMMARY ---
PREOPERATIVE DIAGNOSES: 1. Slipped Luz. 2. Status post Luz fundoplication - 11/09/2017. 3. Mild dysmotility of esophagus. HOSPITAL COURSE: This is a 62-year-old female who presented to me with some symptoms of severe reflux that was unresponsive to medical management. On 11/09/2017, I took the patient to the operating room and did an uncomplicated robot-assisted laparoscopic repair. I was quite happy with her starting the next day and discharged her. I saw her back in a week and she was quite pleased that she did not have reflux symptoms and was able to lie flat for the first time "in years." Unfortunately, she developed signs and symptoms consistent with a viral gastroenteritis with fevers, chills and diarrhea. She also had marked vomiting. We treated her with antiemetics, but she vomited quite a bit. Soon after this, she developed signs and symptoms consistent with reflux again and upper GI was performed which showed evidence of a slipped Luz. I then had her undergo a barium swallow and indeed it appeared that we had had disruption of the Luz with marked reflux. I brought her back to the operating room on 12/14/2017 and did an uncomplicated reoperative Robot-assisted laparoscopic repair. We did a floppy Luz as she does have some mild esophageal dysmotility. She did very well with the surgery. The following morning, a barium swallow was done. This morning's study showed no extravasation and showed evidence of a satisfactory-appearing repair with no reflux. She tolerated liquids without difficulty. I discharged her home and I will see her back next week. ANGELICA
== END 2017-12-15 14:00 | disposition home or self-care (01) | DRG 328 ==
LOC: C.ACU 07:33 → C.MSW 09:30 → ENRESERV 17:18
PROVIDERS: ADMIT Surgery; ATTEND Surgery
PROC: 0DV44ZZ Restriction of Esophagogastric Junction, Percutaneous Endoscopic Approach (ICD-10-PCS; principal; 2017-12-14 09:30)
PROC: 8E0W4CZ Robotic Assisted Procedure of Trunk Region, Percutaneous Endoscopic Approach (ICD-10-PCS; principal; 2017-12-14 09:30)
DX: K95.09 Other complications of gastric band procedure (principal); Z98.890 Other specified postprocedural states; K22.4 Dyskinesia of esophagus; I10 Essential (primary) hypertension; E78.5 Hyperlipidemia, unspecified; F41.8 Other specified anxiety disorders; E55.9 Vitamin D deficiency, unspecified; Z87.19 Personal history of other diseases of the digestive system; Z87.440 Personal history of urinary (tract) infections; Z87.01 Personal history of pneumonia (recurrent); Z79.1 Long term (current) use of non-steroidal anti-inflammatories (NSAID); Z79.899 Other long term (current) drug therapy; Z88.1 Allergy status to other antibiotic agents; Z88.8 Allergy status to other drugs, medicaments and biological substances; Z80.0 Family history of malignant neoplasm of digestive organs; Z80.7 Family history of other malignant neoplasms of lymphoid, hematopoietic and related tissues

== ENCOUNTER → 2017-12-23 | Outpatient (CLI) | payer OTHER ==
[~2017-12-23] MED LIST changes: -ACETAMINOPHEN 1000 MG/100 ML IV IV ONE; +HYDR-3419 PO; -LACTATED RINGER'S 1000ML 1,000 ML IV SCH; +RGL10 PO
--- NOTE | 2017-12-23 08:52 | DIAGNOSTIC IMAGING REPORT ---
CHEST 2 VIEWS ROUTINE HISTORY: 62 years-old Female [id number] Status post Luz fundoplication COMPARISON: Acute abdominal series radiographs 11/21/2017 TECHNIQUE: PA and lateral views of the chest FINDINGS: Cardiomediastinal and hilar silhouettes are within normal limits. Linear subsegmental bibasilar opacities suggest atelectasis. There is no pneumothorax, pleural effusion, focal airspace consolidation or overt pulmonary edema. Bones of the chest appear grossly intact. Upper abdomen appears grossly unremarkable. IMPRESSION: Linear subsegmental bibasilar atelectasis without acute process. The above report was generated using voice recognition software. It may contain grammatical, syntax or spelling errors. Electronically signed by: Morgan Hanks M.D. 12/23/2017 8:51 AM Dictated Date/Time: 12/23/2017 8:49 AM
== END | disposition home or self-care (01) ==
LOC: C.RAD1850 08:35
PROVIDERS: ATTEND Surgery
DX: J98.11 Atelectasis (principal); Z98.890 Other specified postprocedural states

== ENCOUNTER → 2017-12-23 | Outpatient (CLI) | payer OTHER ==
[2017-12-23 12:13] LABS: BASO % 0.2 %; BASO ABS # 0.03 K/uL (0-0.2); EOS % 1.9 %; EOS ABS # 0.27 K/uL (0-0.5); HEMATOCRIT 37.2 % (37-47); HEMOGLOBIN 12.4 g/dL (12.0-16.0); LYMPH % 15.9 %; MEAN CELL VOLUME 87.3 fL (80-100); MEAN CORPUSCULAR HEMOGLOBIN 29.1 pg (25-34); MEAN CORPUSCULAR HGB CONC 33.3 g/dl (32-36); MEAN PLATELET VOLUME 10.4 fL (7.4-10.4); MONO % 5.1 %; MONO ABS # 0.71 K/uL (0.11-0.59); NEUT % 76.2 %; NEUT ABS # 10.56 K/uL (1.4-6.5); PLATELET COUNT 390 K/uL (130-400); RED CELL DISTRIBUTION WIDTH CV 13.7 % (11.5-14.5); RED CELL DISTRIBUTION WIDTH SD 43.5 fL (36.4-46.3); WHITE BLOOD COUNT 13.87 K/uL (4.8-10.8)
[2017-12-23 12:32] LABS: BLOOD UREA NITROGEN 7 mg/dl (7-18); CALCIUM 9.6 mg/dl (8.5-10.1); CARBON DIOXIDE 29 mmol/L (21-32); CREATININE 1.16 mg/dl (0.60-1.20); GLUCOSE 98 mg/dl (70-99); POTASSIUM 3.3 mmol/L (3.5-5.1); SODIUM 134 mmol/L (136-145)
== END | disposition home or self-care (01) ==
LOC: C.LAB 10:15
PROVIDERS: ATTEND Physician Assistant
DX: R11.10 Vomiting, unspecified (principal)

== ENCOUNTER → 2018-01-25 | Outpatient (CLI) | payer OTHER ==
[2018-01-25 17:47] LABS: BLOOD UREA NITROGEN 14 mg/dl (7-18)
== END | disposition home or self-care (01) ==
LOC: C.LABPBG 14:23
PROVIDERS: ATTEND Internal Medicine Geriatric Medicine
DX: Z01.812 Encounter for preprocedural laboratory examination (principal)

== ENCOUNTER → 2018-02-09 | Outpatient (CLI) | payer OTHER ==
[~2018-02-09] MED LIST changes: +GADAVIST IV PRN
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
== END | disposition home or self-care (01) ==
LOC: C.MRIBC 08:37
PROVIDERS: ATTEND Internal Medicine Geriatric Medicine
DX: F09 Unspecified mental disorder due to known physiological condition (principal)

== ENCOUNTER → 2018-06-26 | Outpatient (CLI) | payer OTHER ==
[~2018-06-26] MED LIST changes: -GADAVIST IV PRN; -HYDR-3419 PO
== END | disposition home or self-care (01) ==
LOC: C.LABPBG 11:07
PROVIDERS: ATTEND Physician Assistant Medical
DX: R39.9 Unspecified symptoms and signs involving the genitourinary system (principal)